=== PATIENT | male | born 1930 | race Asian ===

== ENCOUNTER 2017-08-13 11:31 | Emergency (ER) | payer OTHER ==
[2017-08-13 11:42] VITALS: BP 130/69; PULSE 73; TEMP 97.7; BMI 20.5
--- NOTE | 2017-08-13 12:00 | PDOC ---
History of Present Illness - General Chief Complaint: Injury Stated Complaint: INJURY Time Seen by Provider: 08/13/17 11:51 History Source: Patient, Care Provider, Family Exam Limitations: No Limitations - History of Present Illness Initial Comments: 08/13/17 12:01 Patient was brought in by care provider for evaluation of right rib pain. States was standing on chair yesterday changing the battery in a smoke alarm, stumbled and fell and landed on edge of chair to the right rib. Complaints of pain and mild immobility secondary to this fall. Denies head injury, no shortness of breath, Occurred: reports: yesterday Severity: reports: mild, moderate Pain Location: reports: abdomen, chest Method of Injury: Yes: direct blow, fall Modifying Factors: improves with: cold therapy, pain medication Loss of Consciousness: no loss of consciousness Associated Symptoms (Fall): denies symptoms, chest pain Past History - Travel Traveled outside of the country in the last 30 days: No Close contact w/someone who was outside of country & ill: No - Past Medical History Allergies/Adverse Reactions: Allergies Allergy/AdvReac Type Severity Reaction Status Date / Time No Known Allergies Allergy Verified 08/13/17 11:42 Home Medications: Ambulatory Orders NK [No Known Home Medication] 08/13/17 COPD: No GI Disorders: Yes Other medical history: constipation - Surgical History 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 No: Malaise HEENTM: Yes: See HPI. No: Symptoms Reported Respiratory: Yes: See HPI, Other (pain with deep inspiration primarily right mid lower rib). No: Cough ABD/GI: Yes: Symptoms Reported, See HPI (mild tenderness to right lower rib border) : No: Symptoms Reported Integumentary: Yes: See HPI. No: Symptoms Reported, Bruising Neurological: Yes: See HPI. No: Symptoms reported All Other Systems: Reviewed and Negative *Physical Exam - Vital Signs Last Vital Signs Temp Pulse Resp BP Pulse Ox 97.7 F 73 18 130/69 99 08/13/17 11:37 08/13/17 11:37 08/13/17 11:37 08/13/17 11:37 08/13/17 11:37 - Physical Exam General Appearance: Yes: Nourished, Appropriately Dressed, Apparent Distress, Mild Distress HEENT: positive: JOSAFAT, Normal ENT Inspection, TMs Normal, Pharynx Normal Neck: positive: Supple. negative: Tender Respiratory/Chest: positive: Lungs Clear (the poor inspiratory effort secondary to right rib pain), Normal Breath Sounds. negative: Paradoxal Breathing Cardiovascular: positive: Regular Rhythm Gastrointestinal/Abdominal: positive: Tender (upper right quad/ prim inferior rib border ), Soft Musculoskeletal: positive: Normal Inspection Extremity: positive: Normal Capillary Refill, Normal Inspection Integumentary: positive: Normal Color, Dry, Warm. negative: Swelling, Ecchymosis, Bruising Neurologic: positive: crayon sorting machine feeder II-XII NML intact, Fully Oriented, Alert, Normal Mood/ Affect, Normal Response, Motor Strength 5/5 Progress Note - Progress Note Progress Note: Probable fracture although x-rays on conclusive. Discussed with patient and care provider treatment is supportive care. Also encouraged to return to emergency department for worsened pain, abdominal pain, fevers or other problems otherwise we'll treat with naproxen which patient already has at home. Opted out of any heavy narcotic medications as patient lives alone and elderly , is also reluctant to take medications. *DC/Admit/Observation/Transfer Diagnosis at time of Disposition: Contusion of rib on right side Qualifiers: Encounter type: initial encounter Qualified Code(s): S20.211A - Contusion of right front wall of thorax, initial encounter - Discharge Dispostion Disposition: HOME Condition at time of disposition: Stable Admit: No - Referrals Referrals: STAFF,NOT ON [Primary Care Provider] - - Patient Instructions Printed Discharge Instructions: DI for Rib Contusion Additional Instructions: Rest, drink lots of fluids: Teas, water, soups, Steamy showers/seem to face break up mucus Continue [id number] medications for symptomatic relief Tylenol or Motrin for fever and pain Followup with private physician in one to 2 days as needed Return to emergency department for worsened symptoms, fevers, dehydration - Post Discharge Activity
[2017-08-13] MEDS ORDERED: ACETAMINOPHEN 500 MG TABLET (FP) PO ONE (12:20)
[2017-08-13] MEDS ORDERED: ACETAMINOPHEN 500 MG TABLET (FP) ONE (12:22)
== END 2017-08-13 12:55 | disposition home or self-care (01) ==
LOC: JERFT 11:31
DX: S20.211A Contusion of right front wall of thorax, initial encounter (principal); W07.XXXA Fall from chair, initial encounter; Y93.E9 Activity, other interior property and clothing maintenance; Y92.038 Other place in apartment as the place of occurrence of the external cause; Y99.8 Other external cause status; Z85.038 Personal history of other malignant neoplasm of large intestine
CPT/HCPCS: 71101-TC-RT; 99281-25

== ENCOUNTER 2018-06-27 15:46 | Inpatient (IN) | payer OTHER ==
[2018-06-27 16:07] VITALS: BMI 19.0
--- NOTE | 2018-06-27 16:07 | PDOC ---
Rapid Medical Evaluation Chief Complaint: Pain Time Seen by Provider: 06/27/18 16:04 Medical Evaluation: Allergies Allergy/AdvReac Type Severity Reaction Status Date / Time No Known Allergies Allergy Verified 08/13/17 11:42 06/27/18 16:05 I have performed a brief in person evaluation. The patient presents with a CC of : Fall and right hand edema and erythema HPI: Pt is a 88 Yo male who is accompanied by his aide who states that he fell in his bedroom on Tuesday and fell onto his face. Denies LOC. Denies being on anticoagulants with the exception of ASA. Pt also had hand pain and erythema x 4 days. PE: Skin: Erythema to right hand. Lungs: Clear Heart: RRR Abd: no pain upon palpation MS: Moves all extremities without difficulty Neuro: Alert Psych: Appropriate affect I have ordered the following: basic labs and right hand xray and CT of face and head. The patient will proceed to the ED for further evaluation. Discharge Disposition - Diagnosis Facial pain - Referrals Referrals: Vince Kevin MD [Primary Care Provider] - - Patient Instructions - Post Discharge Activity
[2018-06-27 16:49] LABS: BASO % 0.3 % (0-2.0); HEMATOCRIT 33.4 % (35.4-49); HEMOGLOBIN 11.7 GM/dL (11.7-16.9); LYMPH % 4.3 % (8-40); MCH 33.7 pg (25.7-33.7); MEAN CELL VOLUME 96.4 fl (80-96); MEAN PLT VOLUME 7.7 fl (7.5-11.1); MONO % 4.5 % (3.8-10.2); NEUT % 90.9 % (42.8-82.8); PLATELET COUNT 182 K/MM3 (134-434); RBC 3.47 M/mm3 (4.00-5.60); RDW 14.1 % (11.9-15.9); WHITE BLOOD COUNT 8.1 K/mm3 (4.0-10.0)
--- NOTE | 2018-06-27 18:40 | PDOC ---
History of Present Illness - General Chief Complaint: Edema Stated Complaint: INJURY LT EYE/RT HAND Time Seen by Provider: 06/27/18 16:04 - History of Present Illness Initial Comments: 06/27/18 20:20 The patient is an 88 year old male with a history of colon CA who presents for evaluation of right hand pain. The patient reports that he fell 2 days ago and landed on his right hand. He has since been developing more pain, swelling, and redness to the hand prompting his presentation to the ED for further evaluation. He notes that he did hit his head, but denies LOC and is on asa. He otherwise denies fevers, chills, SOB, chest pain, nausea, vomiting, abdominal pain, numbness, tingling, weakness, or changes with urination or bowel movements. 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 No rashes, itching, bruising, pallor Neurologic: No Headache, Dizziness, Numbness, Weakness, or Tingling Psychiatric: No Hallucinations. No SI or HI *Physical Exam - Vital Signs Last Vital Signs Temp Pulse Resp BP Pulse Ox 97.8 F 76 18 128/64 100 06/27/18 16:03 06/27/18 16:03 06/27/18 16:03 06/27/18 16:03 06/27/18 16:03 - Physical Exam Comments: 06/27/18 20:22 General Appearance: Nourished. No Apparent Distress HEENT: EOMI, JOSAFAT. No Pharyngeal Erythema, Tonsillar Exudate, Tonsillar Erythema Neck: No Cervical Lymphadenopathy Respiratory/Chest: Lungs Clear, Normal Breath Sounds. No Crackles, Rales, Rhonchi, Wheezing Cardiovascular: Regular Rhythm, Regular Rate. No Murmur, Gallops, Rubs Gastrointestinal/Abdominal: Normal Bowel Sounds, Soft. No Guarding, Rebound, Tenderness Musculoskeletal: No CVA Tenderness Extremity: Edema, warmth, erythema, and tenderness to palpation to the right hand extending to the wrist. Normal Capillary Refill Integumentary: Normal Color, Dry, Warm Neurologic: dredgemaster II-XII NML intact, Fully Oriented, Alert, Normal Mood/Affect, Normal Response, Motor Strength 5/5. ED Treatment Course - LABORATORY CBC & Chemistry Diagram: 06/27/18 16:37 06/27/18 20:30 - ADDITIONAL ORDERS Additional order review: Laboratory Results 06/27/18 16:37 Sodium Cancelled Potassium Cancelled Chloride Cancelled Carbon Dioxide Cancelled Anion Gap Cancelled BUN Cancelled Creatinine Cancelled Creat Clearance w eGFR Cancelled Random Glucose Cancelled Calcium Cancelled Total Bilirubin Cancelled AST Cancelled ALT Cancelled Alkaline Phosphatase Cancelled Total Protein Cancelled Albumin Cancelled 06/27/18 16:37 RBC 3.47 L MCV 96.4 H MCHC 35.0 RDW 14.1 MPV 7.7 Neutrophils % 90.9 H Lymphocytes % 4.3 L Monocytes % 4.5 Eosinophils % 0.0 Basophils % 0.3 Medical Decision Making - Medical Decision Making 06/27/18 20:23 The patient is an 88 year old male with a history of colon CA who presents for evaluation of right hand pain. Differential includes but is not limited to: Cellulitis, abscess, Fracture, Infectious, Metabolic Derangement. Given the patient's history and physical exam, it is likely his symptoms are due to a cellulitis. However, we will obtain a cbc, cmp, blood cultures, plain films, ekg to evaluate further. The patient refused head ct imaging at this time. He his fall was 48 hours ago and he has no focal neurological deficits on exam make intracranial process less likely. We will treat with clindamycin and continue to monitor and reassess while here in the ED. 06/27/18 23:32 CBC, cmp are unremarkable. Plain films demonstrate no fractures as read by our radiologist. We discussed the case with the admitting team who accepted the patient for admission. *DC/Admit/Observation/Transfer Diagnosis at time of Disposition: Cellulitis of hand - Discharge Dispostion Condition at time of disposition: Stable Decision to Admit order: Yes - Referrals Referrals: Vince Kevin MD [Primary Care Provider] - - Patient Instructions - Post Discharge Activity
--- NOTE | 2018-06-27 19:32 | PDOC ---
Attending Attestation - Resident Resident Name: MaryFrankBrent - ED Attending Attestation I have performed the following: I have examined & evaluated the patient, The case was reviewed & discussed with the resident, I agree w/resident's findings & plan, Exceptions are as noted - HPI HPI: 06/27/18 19:31 88-year-old male fell yesterday and presents with complaint of wrist pain - Physicial Exam PE: 06/27/18 19:42 [id number] 88 male has c/o wrist pain head ncat c spine no midline tenderness lungs cta b/l cvs [id number] abd nontender ext left land is swollen,erythematous and tender, good ulnar and radial pulses neuro alert,conversant, no facial droop,moving arms and legs skin warm and dry 06/27/18 20:20 06/27/18 21:24 - Medical Decision Making 06/27/18 21:25 This 88-year-old male was brought in by ambulance from home for evaluation of right hand and wrist pain following a fall on Tuesday Patient lives alone at home and has a home health aide. The patient fell yesterday and comes in because of persistent right wrist pain . He is not any anticoagulation. Radiograph of the right wrist was negative for any fracture. Impression cellulitis, right hand and wrist/admission for antibiotics
[2018-06-27] MEDS ORDERED: CLINDAMYCIN 600MG PREMIX IVPB 600 MG/50 ML BAG IVPB ONE ×2 (20:18→21:46)
[2018-06-27 21:11] LABS: ALBUMIN 2.2 g/dl (3.4-5.0); ALK PHOS 71 U/L (45-117); ANION GAP 10 MMOL/L (8-16); BILIRUBIN,TOTAL 0.6 mg/dL (0.2-1); BLOOD UREA NITROGEN 17 mg/dL (7-18); CALCIUM 7.5 mg/dL (8.5-10.1); CHLORIDE 107 mmol/L (98-107); CO2 25 mmol/L (21-32); CREATININE 0.7 mg/dL (0.55-1.3); GLUCOSE,RANDOM 79 mg/dL (74-106); SGOT/AST 26 U/L (15-37); SGPT/ALT 26 U/L (13-61); SODIUM 142 mmol/L (136-145); TOT PROT 5.2 g/dl (6.4-8.2)
--- NOTE | 2018-06-28 00:09 | HP ---
Admitting History and Physical - Primary Care Physician PCP: Vince Kevin - Admission Chief Complaint: right hand swelling and redness History of Present Illness: 88 year old M with h/o BPH, colon cancer s/p resection now with chronic diarrhea , Aortic aneursym s/p endovascular repair 03/2018, anemia (on iron PO) and hearing loss (uses hearing aides) presented to ED via EMS for evaluation of right hand/wrist swelling, pain and redness since the morning of 06/27. Pt reports falling out of bed overnight, he did not sustain any serious injuries and noticed his hand was swollen upon awakening in the morning. Due to concern for fracture, he decided to present for urgent evaluation. He denies fever/ chills/N/V/GALLEGOS. In ED vitals were stable: BP 128/64, HR 76, temp 97.8, RR 18 and O2 sat 100%. X- ray of right wrist and hand did not demonstrate any fractures. However, due to significant cellulitis and elevated neutrophils (90%); pt was admitted for continued management. He was given one dose of clindamycin 600mg IVSS in ED. History Source: Patient Limitations to Obtaining History: Language Barrier, Poor Historian - Past Medical History [employer]: No: Alzheimer's, CVA, Dementia, Migraine, Multiple Sclerosis, Peripheral Neuropathy, Parkinson's, Seizure, Syncope, TIA, Vertigo, Other Cardiovascular: Yes: Aneurysm, Murmur Gastrointestinal: Yes: Cancer, Other (diarrhea) Renal/: No: Renal Failure, Renal Inusuff, BPH, Cancer, Hematuria, Hemodialysis , Neurogenic Bladder, Renal Calculi, UTI, Other Heme/Onc: Yes: Anemia. No: B12 Deficiency, Bleeding Disorder, Cancer, Current Chemotherapy, Current Radiation Therapy, Hemochromatosis, Hypercoaguable State, Myeloproliferative Synd, Sickle Cell Disease, Sickle Cell Trait, Thrombocytopenia, Other Psych: No: Addictions, Anxiety, Bipolar, Depression, Panic, Psychosis, Schizophrenia, Other Musculoskeletal: No: Bursitis, Chronic low back pain, Hemiparesis, Hemiplegia, Osteoarthritis, Paraplegia, Other Rheumatology: No: Fibromyalgia, Gout, Lupus, Rheumatoid Arthritis, Sarcoidosis, Vasculitis, Other ENT: Yes: Allergic Rhinitis Endocrine: Yes: Diabetes Mellitus Dermatology: Yes: Cellulitis - Past Surgical History Past Surgical History: Yes: AAA Repair, Colonoscopy (colon cancer resection) - Smoking History Smoking history: Never smoked Have you smoked in the past 12 months: No - Alcohol/Substance Use Hx Alcohol Use: No History of Substance Use: reports: None - Social History Usual Living Arrangement: Yes: Alone 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 History of Recent Travel: No Home Medications - Allergies Allergies/Adverse Reactions: Allergies Allergy/AdvReac Type Severity Reaction Status Date / Time No Known Allergies Allergy Verified 06/27/18 16:07 - Home Medications Home Medications: Ambulatory Orders Aspirin [ASA -] 81 mg PO DAILY 06/27/18 Iron 0 mg PO 06/27/18 Loperamide HCl [Imodium -] 2 mg PO DAILY 06/27/18 Tamsulosin HCl 0.4 mg PO DAILY 06/27/18 Zolpidem Tartrate [Ambien] 5 mg PO 06/27/18 Family Disease History - Family Disease History Family History: Unable to Obtain ([place] to current admission) Review of Systems - Review of Systems Constitutional: reports: No Symptoms Eyes: reports: No Symptoms (wears prescription lens) HENT: reports: Hearing Loss Neck: reports: No Symptoms Cardiovascular: reports: Edema Respiratory: reports: No Symptoms Gastrointestinal: reports: Diarrhea Genitourinary: reports: Incontinence Musculoskeletal: reports: Decreased ROM (right hand and wrist swelling and redness) Integumentary: reports: Erythema (left dowd blister from edema Right hand redness and swelling) Neurological: reports: Unsteady Gait (ambulates with rollator) Endocrine: reports: No Symptoms Hematology/Lymphatic: reports: No Symptoms Psychiatric: reports: Altered Sleep Pattern (reports two weeks of insomnia) Physical Examination Vital Signs: Vital Signs Temperature 97.8 F 06/27/18 16:03 Pulse Rate 76 06/27/18 16:03 Respiratory Rate 18 06/27/18 16:03 Blood Pressure 128/64 06/27/18 16:03 O2 Sat by Pulse Oximetry (%) 100 06/27/18 16:03 Constitutional: Yes: No Distress, Calm Eyes: Yes: Conjunctiva Clear, PERRL (left lower lid orbital ecchymosis) HENT: Yes: Atraumatic, Normocephalic Neck: Yes: Supple, Trachea Midline (+JVD) Cardiovascular: Yes: Regular Rate and Rhythm, Murmur (harsh SM across precordium ) Respiratory: Yes: Regular, CTA Bilaterally Gastrointestinal: Yes: Normal Bowel Sounds, Soft ...Rectal Exam: Yes: Deferred Renal/: Yes: Incontinence Musculoskeletal: Yes: Other (decreased muscle strength and ROM) Extremities: Yes: Cool Edema: LLE: 3+ (pitting edema), RLE: 3+ (pitting edema) Peripheral Pulses: Left Radial: 1+, Right Radial: 1+, Left Doralis Pedis: 1+, Right Dorsalis Pedis: 1+ Integumentary: Yes: Erythema (right wrist and hand), Skin Tear (Left dowd) Neurological: Yes: Alert, Oriented, Unsteady Gait Psychiatric: Yes: Alert, Oriented Labs: CBC, BMP 06/27/18 16:37 06/27/18 20:30 Imaging - Results X-ray: Report Reviewed (right hand x-ray: Loss of bone density. Degenerative changes. Swelling, no acute fracture appreciated. Reported by Dr. Paul Cervantes) Problem List - Problems (1) Edema extremities Assessment/Plan: lasix 20mg daily elevate Lower extremities strict intake and output replete electrolytes as needed cardiac diet Code(s): R60.0 - LOCALIZED EDEMA (2) Insomnia Assessment/Plan: hold ambien start melatonin 5mg qhs PRN Code(s): G47.00 - INSOMNIA, UNSPECIFIED (3) Chronic diarrhea of unknown origin Assessment/Plan: imodium 2mg once daily monitor electrolytes Code(s): K52.9 - NONINFECTIVE GASTROENTERITIS AND COLITIS, UNSPECIFIED (4) BPH (benign prostatic hyperplasia) Assessment/Plan: flomax 0.4mg once daily Code(s): N40.0 - BENIGN PROSTATIC HYPERPLASIA WITHOUT LOWER URINRY TRACT SYMP (5) Cellulitis of hand Assessment/Plan: continue with clindamycin 600mg three times daily f/u blood cultures trend temp curve trend WBCs, ANC Code(s): L03.119 - CELLULITIS OF UNSPECIFIED PART OF LIMB Assessment/Plan PPX Heparin SC BID fall precautions due to unsteady gait DISPO: Full code Visit type - Emergency Visit Emergency Visit: Yes ED Registration Date: 06/27/18 Care time: The patient presented to the Emergency Department on the above date and was hospitalized for further evaluation of their emergent condition. - New Patient This patient is new to me today: Yes Date on this admission: 06/28/18 - Critical Care Critical Care patient: No
[2018-06-28] MEDS ORDERED: LOPERAMIDE HCL 2 MG CAPSULE PO PRN (00:36)
[2018-06-28] MEDS ORDERED: ACETAMINOPHEN 325 MG TABLET (FP) PO PRN (00:41)
[2018-06-28] MEDS ORDERED: FUROSEMIDE 40 MG/4 ML INJECTABLE VIAL IVPUSH STA (00:58)
[2018-06-28] MEDS ORDERED: FUROSEMIDE 40 MG/4 ML INJECTABLE VIAL ONE (01:10)
[2018-06-28] MEDS: CLINDAMYCIN 300 MG PREMIX IVPB 300 MG/50 ML BAG IVPB SCH ×2 (05:09→14:35)
[2018-06-28] MEDS: INSULIN SLIDING SCALE (NOVOLOG) 1 VIAL SQ SCH ×4 (07:00→21:47)
[2018-06-28] MEDS: TAMSULOSIN HCL 0.4 MG CAP PO SCH (08:48)
[2018-06-28] MEDS: FUROSEMIDE 40 MG/4 ML INJECTABLE VIAL IVPUSH SCH (10:51)
[2018-06-28] MEDS: ASPIRIN 81 MG CHEWABLE TABLETS PO SCH (10:51)
[2018-06-28] MEDS: HEPARIN NA (PORCINE) 5,000 UNITS/ML 1ML VIAL SQ SCH ×2 (10:51→21:47)
--- NOTE | 2018-06-28 13:37 | ECHO ---
Name: LANNY WASHINGTON Exam:Adult Echocardiogram Study Date: 06/28/2018 09:15 AM Age: 88 yrs Reason For Study: SYSTOLIC MURMUR Height: 64 in Weight: 111 lb BSA: 1.5 m2 MMode/2D Measurements & Calculations IVSd: 0.75 cm Ao root diam: 3.2 cm LVIDd: 4.2 cm LA dimension: 3.1 cm LVIDs: 2.5 cm LVPWd: 0.73 cm EDV(Teich): 77.2 ml LVOT diam: 2.0 cm ESV(Teich): 22.5 ml TAPSE: 2.0 cm RV S Ramana: 16.2 cm/sec Doppler Measurements & Calculations MV E max ramana: 70.6 cm/sec Ao V2 max: 149.7 cm/sec MV A max ramana: 92.9 cm/sec Ao max P.0 mmHg MV E/A: 0.76 AI P1/2t: 835.3 msec MV dec time: 0.18 sec SUSAN(V,D): 1.7 cm2 AI max ramana: 293.4 cm/sec LV V1 max P.4 mmHg AI max P.4 mmHg LV V1 max: 77.5 cm/sec AI dec slope: 102.9 cm/sec2 MR max ramana: 622.7 cm/sec TR max ramana: 293.7 cm/sec MR max P.6 mmHg TR max P.5 mmHg Med Peak E' Ramana: 7.5 cm/sec Med E/e': 9.4 Lat Peak E' Ramana: 6.3 cm/sec Lat E/e': 11.2 Procedure A two-dimensional transthoracic echocardiogram with color flow and Doppler was performed. Left Ventricle The left ventricular size, thickness and function are normal. The left ventricular ejection fraction is normal. E/A reversal consistent with but not diagnostic of poor LV compliance. The left ventricular w all motion is normal. Right Ventricle The right ventricle is normal in size and function. A moderator band is seen in the right ventricle. Atria Normal left and right atrial size and function. Mitral Valve There is mild mitral valve thickening. There is no mitral valve stenosis. There is severe mitral regurgitation. The mitral regurgitant jet is posteriorly directed, which is consistent with anterior leaflet pathology. Tricuspid Valve There is mild tricuspid valve thickening. There is no tricuspid stenosis. There is severe tricuspid regurgitation. Right ventricular systolic pressure is elevated at 40-50mmHg. Aortic Valve The aortic valve is normal in structure and function. No hemodynamically significant valvular aortic stenosis. Mild aortic regurgitation. Great Vessels The aortic root is normal size. Pericardium/Pleura There is no pericardial effusion. Interpretation Summary The left ventricular size, thickness and function are normal The left ventricular ejection fraction is normal. There is severe mitral regurgitation. The mitral regurgitant jet is posteriorly directed, which is consistent with anterior leaflet patholo gy. There is severe tricuspid regurgitation. Right ventricular systolic pressure is elevated at 40-50mmHg. A moderator band is seen in the right ventricle. E/A reversal consistent with but not diagnostic of poor LV compliance The left ventricular wall motion is normal. Mild aortic regurgitation. MD Ishaan Landin 06/28/2018 01:36 PM
--- NOTE | 2018-06-28 15:35 | EKG ---
Test Reason : Blood Pressure : / mmHG Vent. Rate : 068 BPM Atrial Rate : 068 BPM P-R Int : 158 ms QRS Dur : 092 ms QT Int : 428 ms P-R-T Axes : 067 037 021 degrees QTc Int : 455 ms POOR DATA QUALITY, INTERPRETATION MAY BE ADVERSELY AFFECTED NORMAL SINUS RHYTHM NORMAL ECG WHEN COMPARED WITH ECG OF 21-MAR-2007 13:10, PREMATURE ATRIAL COMPLEXES ARE NO LONGER PRESENT T WAVE AMPLITUDE HAS DECREASED IN ANTERIOR LEADS Confirmed by ELICIA RUSHING, ELIZABETH ([id number]) on 06/28/2018 3:35:16 PM Referred By: Confirmed By:ELIZABETH RUBI MD
--- NOTE | 2018-06-28 15:36 | CON.ID ---
Consult Consult Specialty:: infectious disease Referred by:: hospitalist Reason for Consultation:: erythema of the right hand - History of Present Illness Chief Complaint: right hand erythema History of Present Illness: 88 yo man admitted from home (senior apt) s/p fall- he injured his right hand wi =hich subseuqently became swollen and red no fevers, no chill now twith 3 month history of LE edema also had endovasclar stent for aneurysm 3 months ago at [facility] no history of MRSA no antibiotics daughter at bedside hand is less swollen and improved today - History Source History Provided By: Family Member Limitations to Obtaining History: Language Barrier - Past Medical History 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: No: Alzheimer's, CVA, Dementia, Migraine, Multiple Sclerosis, Peripheral Neuropathy, Parkinson's, Seizure, Syncope, TIA, Vertigo, Other Cardio/Vascular: Yes: Aneurysm, Murmur Gastrointestinal: Yes: Cancer, Other (diarrhea) Renal/: No: Renal Failure, Renal Inusuff, BPH, Cancer, Hematuria, Hemodialysis , Neurogenic Bladder, Renal Calculi, UTI, Other Psych: No: Addictions, Anxiety, Bipolar, Depression, Panic, Psychosis, Schizophrenia, Other Musculoskeletal: No: Bursitis, Chronic low back pain, Hemiparesis, Hemiplegia, Osteoarthritis, Paraplegia, Other Rheumatology: No: Fibromyalgia, Gout, Lupus, Rheumatoid Arthritis, Sarcoidosis, Vasculitis, Other ENT: Yes: Allergic Rhinitis Endocrine: Yes: Diabetes Mellitus Dermatology: Yes: Cellulitis - Past Surgical History Past Surgical History: Yes: AAA Repair, Colectomy (has chronic diarrhea), Colonoscopy (colon cancer resection) - Alcohol/Substance Use Hx Alcohol Use: No History of Substance Use: reports: None - Smoking History Smoking history: Never smoked Have you smoked in the past 12 months: No - Social History Usual Living Arrangement: Alone (senior apt) 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 History of Recent Travel: No Home Medications - Allergies Allergies/Adverse Reactions: Allergies Allergy/AdvReac Type Severity Reaction Status Date / Time No Known Allergies Allergy Verified 06/27/18 16:07 - Home Medications Home Medications: Ambulatory Orders Aspirin [ASA -] 81 mg PO DAILY 06/27/18 Iron 0 mg PO 06/27/18 Loperamide HCl [Imodium -] 2 mg PO DAILY 06/27/18 Tamsulosin HCl 0.4 mg PO DAILY 06/27/18 Zolpidem Tartrate [Ambien] 5 mg PO 06/27/18 Family Disease History - Family Disease History Family History: Unable to Obtain Review of Systems - Review of Systems Constitutional: reports: No Symptoms. denies: Chills, Diaphoresis, Fever Eyes: reports: No Symptoms HENT: reports: No Symptoms Neck: reports: No Symptoms Cardiovascular: reports: No Symptoms. denies: Chest Pain Respiratory: denies: Cough Gastrointestinal: reports: No Symptoms. denies: Abdominal Pain Genitourinary: reports: No Symptoms Physical Exam Vital Signs: Vital Signs Temperature 97.7 F 06/28/18 14:00 Pulse Rate 78 06/28/18 08:30 Respiratory Rate 18 06/28/18 08:30 Blood Pressure 129/67 06/28/18 08:30 O2 Sat by Pulse Oximetry (%) 96 06/28/18 08:30 Constitutional: Yes: Well Nourished, No Distress, Calm Eyes: Yes: Conjunctiva Clear HENT: Yes: Atraumatic, Normocephalic. No: Thrush Neck: Yes: Supple, Trachea Midline Cardiovascular: Yes: Regular Rate and Rhythm Respiratory: Yes: Regular, CTA Bilaterally Gastrointestinal: Yes: Normal Bowel Sounds, Soft ...Rectal Exam: Yes: Deferred Renal/: No: CVA Tenderness - Left, CVA Tenderness - Right Musculoskeletal: Yes: WNL Extremities: Yes: Erythema (of the right hand, no edema- +erythema, FROM of the hand), Other Edema: No Neurological: Yes: Alert, Oriented Psychiatric: Yes: Alert, Oriented Labs: CBC, BMP 06/27/18 16:37 06/27/18 20:30 blood cultures pending Imaging - Results X-ray: Report Reviewed, Image Reviewed Problem List - Problems (1) Cellulitis of hand Code(s): L03.119 - CELLULITIS OF UNSPECIFIED PART OF LIMB Assessment/Plan cellulitis of the hand secondary to fall last hospitalized 3 months ago for endovascular stent placement for AAA after that overnight for leg swelling no history of MRSA no evidence fever or abscess reports improvement will start cefazolin f/u cultures
--- NOTE | 2018-06-28 16:05 | PN ---
Progress Note, Physician Chief Complaint: EVENTS AND NOTES REVIEWED C/O ERYTHEMA TO UPPER EXTREMITIES NO FEVERS - Current Medication List Current Medications: Active Medications Acetaminophen (Tylenol -) 650 mg PO Q6H PRN PRN Reason: FEVER Aspirin (Asa -) 81 mg PO DAILY [facility] Last Admin: 06/28/18 10:51 Dose: 81 mg Furosemide (Lasix Injection -) 20 mg IVPUSH DAILY [facility] Last Admin: 06/28/18 10:51 Dose: 20 mg Heparin Sodium (Porcine) (Heparin -) 5,000 unit SQ BID [facility] Last Admin: 06/28/18 10:51 Dose: 5,000 unit Cefazolin Sodium 1 gm/ (Dextrose) 50 mls @ 100 mls/hr IVPB Q8H-IV AVERY Insulin Aspart (Novolog Vial Sliding Scale -) 1 vial SQ ACHS [facility]; Protocol Last Admin: 06/28/18 11:08 Dose: Not Given Loperamide HCl (Imodium -) 2 mg PO Q6H PRN PRN Reason: DIARRHEA Melatonin (Melatonin) 3 mg PO [facility] Tamsulosin HCl (Flomax -) 0.4 mg PO DAILY@0830 [facility] Last Admin: 06/28/18 08:48 Dose: 0.4 mg - Objective Vital Signs: Vital Signs Temperature 97.7 F 06/28/18 14:00 Pulse Rate 78 06/28/18 08:30 Respiratory Rate 18 06/28/18 08:30 Blood Pressure 129/67 06/28/18 08:30 O2 Sat by Pulse Oximetry (%) 96 06/28/18 08:30 Constitutional: Yes: Mild Distress Eyes: Yes: WNL HENT: Yes: WNL Neck: Yes: WNL Cardiovascular: Yes: WNL Respiratory: Yes: WNL Gastrointestinal: Yes: WNL Genitourinary: Yes: WNL Musculoskeletal: Yes: Other Extremities: Yes: Erythema Edema: Yes Edema: LUE: 1+, RUE: 1+ Peripheral Pulses WNL: Yes Integumentary: Yes: Erythema, Rash Wound/Incision: Yes: Open to air Neurological: Yes: WNL ...Motor Strength: WNL Psychiatric: Yes: WNL Labs: CBC, BMP 06/27/18 16:37 06/27/18 20:30 Problem List - Problems (1) BPH (benign prostatic hyperplasia) Code(s): N40.0 - BENIGN PROSTATIC HYPERPLASIA WITHOUT LOWER URINRY TRACT SYMP (2) Cellulitis of hand Code(s): L03.119 - CELLULITIS OF UNSPECIFIED PART OF LIMB (3) Edema extremities Code(s): R60.0 - LOCALIZED EDEMA Assessment/Plan IV ABX ID CONSULT VASC SX EVAL PAIN CONTROL DVT PROPHYLAXIS OOB TO CHAIR
[2018-06-28] MEDS ORDERED: DEXTROSE 5%-WATER - 50 ML IVPB ONE (17:52)
[2018-06-28] MEDS ORDERED: ceFAZolin SODIUM 1 GM VIAL ONE (17:52)
[2018-06-28] MEDS ORDERED: CEFAZOLIN 1 GM/D5W 1 GM/50 ML BAG IVPB SCH (18:00)
[2018-06-28] MEDS: CEFAZOLIN 1 GM in DEXTROSE 5%-WATER - 50 ML IVPB SCH (18:08)
[2018-06-28] MEDS ORDERED: INSULIN (NOVOLOG) ASPART 100 UNITS/ML 10ML VIAL ONE (20:32)
[2018-06-28] MEDS ORDERED: MELATONIN 1 MG TABLET PO SCH (22:00)
[2018-06-29] MEDS ORDERED: ceFAZolin SODIUM 1 GM VIAL ONE ×2 (03:01→09:20)
[2018-06-29] MEDS ORDERED: DEXTROSE 5%-WATER - 50 ML IVPB ONE ×2 (03:01→09:20)
--- NOTE | 2018-06-29 03:03 | PN ---
Progress Note (short form) - Note Progress Note: Vascular Surgery Pt seen and examined. Right hand cellulitis . Palpable brachial , radial pulses . IV antiobiotics Getting better Jonathan Courtney DO
[2018-06-29] MEDS: CEFAZOLIN 1 GM in DEXTROSE 5%-WATER - 50 ML IVPB SCH ×2 (03:05→09:42)
[2018-06-29 06:02] VITALS: TEMP 97.3
[2018-06-29] MEDS: INSULIN SLIDING SCALE (NOVOLOG) 1 VIAL SQ SCH ×2 (06:09→13:40)
[2018-06-29 08:35] LABS: HEMOGLOBIN 9.7 GM/dL (11.7-16.9); MCH 32.4 pg (25.7-33.7); MCHC 33.5 g/dl (32.0-35.9); MEAN CELL VOLUME 96.8 fl (80-96); MEAN PLT VOLUME 7.8 fl (7.5-11.1); PLATELET COUNT 141 K/MM3 (134-434); RDW 13.8 % (11.9-15.9)
[2018-06-29 08:43] LABS: ANION GAP 4 MMOL/L (8-16); BLOOD UREA NITROGEN 22 mg/dL (7-18); CALCIUM 7.2 mg/dL (8.5-10.1); CHLORIDE 104 mmol/L (98-107); CO2 30 mmol/L (21-32); CREATININE 0.7 mg/dL (0.55-1.3); GLUCOSE,RANDOM 99 mg/dL (74-106); N-TERMINAL BNP 1977.8 pg/ml (5-450); PHOSPHOROUS 2.7 mg/dL (2.5-4.9); SODIUM 139 mmol/L (136-145)
[2018-06-29 09:03] LABS: INR 1.15 (0.83-1.09); PROTHROMBIN TIME (PATIENT) 13.6 SEC (9.7-13.0)
[2018-06-29] MEDS: FUROSEMIDE 40 MG/4 ML INJECTABLE VIAL IVPUSH SCH (09:41)
[2018-06-29] MEDS: ASPIRIN 81 MG CHEWABLE TABLETS PO SCH (09:42)
[2018-06-29] MEDS: TAMSULOSIN HCL 0.4 MG CAP PO SCH (09:42)
[2018-06-29] MEDS: HEPARIN NA (PORCINE) 5,000 UNITS/ML 1ML VIAL SQ SCH (09:42)
[2018-06-29 11:09] LABS: ERYTHROCYTE SEDIMENTATION RATE 10 mm/hr (0-20)
--- NOTE | 2018-06-29 11:22 | PN ---
Progress Note (short form) - Note Progress Note: no complaints Vital Signs Period Temp Pulse Resp BP Sys/Olguin Pulse Ox Last 24 Hr 97.3 F-97.9 F 60-70 18-68 103-122/60-68 96 cor-rrr lungs clear abd soft,nt ext +edema of the legs less erythema of the finger, still erythema of the dorsum of the hand CBC, BMP 06/29/18 06:00 06/29/18 06:00 Microbiology 06/27/18 20:30 Blood - Peripheral Venous Blood Culture - Preliminary NO GROWTH OBTAINED AFTER 24 HOURS, INCUBATION TO CONTINUE FOR 4 DAYS. 06/27/18 20:30 Blood - Peripheral Venous Blood Culture - Preliminary NO GROWTH OBTAINED AFTER 24 HOURS, INCUBATION TO CONTINUE FOR 4 DAYS. a/p hand/arm cellulitis improving on ancef would continue iv antibiotics will re-revaluate in am d/w daughter at bedside Problem List - Problems (1) Cellulitis of hand Code(s): L03.119 - CELLULITIS OF UNSPECIFIED PART OF LIMB
[2018-06-29 11:23] VITALS: BP 100/60; PULSE 78
[2018-06-29] MEDS ORDERED: ceFAZolin 2 GRAM PREMIX BAG IVPB SCH (11:30)
[2018-06-29] MEDS ORDERED: CEFAZOLIN 2 GM/D5W 2 GM/50 ML ML IVPB SCH (11:30)
[2018-06-29] MEDS ORDERED: POTASSIUM CHLORIDE TABS 10 MEQ TABLET.ER (FP) PO ONE (13:22)
--- NOTE | 2018-06-29 13:23 | PN ---
Progress Note, Physician - Current Medication List Current Medications: Active Medications Acetaminophen (Tylenol -) 650 mg PO Q6H PRN PRN Reason: FEVER Aspirin (Asa -) 81 mg PO DAILY [facility] Last Admin: 06/29/18 09:42 Dose: 81 mg Furosemide (Lasix Injection -) 20 mg IVPUSH DAILY [facility] Last Admin: 06/29/18 09:41 Dose: 20 mg Heparin Sodium (Porcine) (Heparin -) 5,000 unit SQ BID [facility] Last Admin: 06/29/18 09:42 Dose: 5,000 unit Cefazolin Sodium/Dextrose (Ancef 2 Gm Premixed Ivpb -) 2 gm in 50 mls @ 100 mls /hr IVPB Q8H-IV AVERY Insulin Aspart (Novolog Vial Sliding Scale -) 1 vial SQ ACHS [facility]; Protocol Last Admin: 06/29/18 06:09 Dose: Not Given Loperamide HCl (Imodium -) 2 mg PO Q6H PRN PRN Reason: DIARRHEA Melatonin (Melatonin) 3 mg PO HS [facility] Last Admin: 06/28/18 21:47 Dose: 3 mg Tamsulosin HCl (Flomax -) 0.4 mg PO DAILY@0830 [facility] Last Admin: 06/29/18 09:42 Dose: 0.4 mg - Objective Vital Signs: Vital Signs Temperature 97.3 F L 06/29/18 05:59 Pulse Rate 78 06/29/18 09:00 Respiratory Rate 18 06/29/18 09:00 Blood Pressure 100/60 06/29/18 09:00 O2 Sat by Pulse Oximetry (%) 96 06/28/18 22:00 Cardiovascular: Yes: S1, S2 Respiratory: Yes: Regular, CTA Bilaterally Gastrointestinal: Yes: Normal Bowel Sounds, Soft Extremities: Yes: Erythema Edema: Yes Edema: LUE: Trace, RUE: 1+, LLE: 1+, RLE: 1+ Labs: CBC, BMP 06/29/18 06:00 06/29/18 06:00 INR, PTT INR 1.15 (0.83-1.09) H 06/29/18 06:00 Assessment/Plan - Problems (1) Edema extremities Assessment/Plan: lasix 20mg daily elevate Lower extremities strict intake and output replete electrolytes as needed cardiac diet Code(s): R60.0 - LOCALIZED EDEMA (2) Insomnia Assessment/Plan: hold ambien start melatonin 5mg qhs PRN Code(s): G47.00 - INSOMNIA, UNSPECIFIED (3) Chronic diarrhea of unknown origin Assessment/Plan: imodium 2mg once daily monitor electrolytes Code(s): K52.9 - NONINFECTIVE GASTROENTERITIS AND COLITIS, UNSPECIFIED (4) BPH (benign prostatic hyperplasia) Assessment/Plan: flomax 0.4mg once daily Code(s): N40.0 - BENIGN PROSTATIC HYPERPLASIA WITHOUT LOWER URINRY TRACT SYMP (5) Cellulitis of hand Assessment/Plan: continue with clindamycin 600mg three times daily f/u blood cultures trend temp curve trend WBCs, ANC Code(s): L03.119 - CELLULITIS OF UNSPECIFIED PART OF LIMB Assessment/Plan PPX Heparin SC BID fall precautions due to unsteady gait
[2018-06-29] MEDS ORDERED: POTASSIUM CHLORIDE TABS 10 MEQ TABLET.ER (FP) PO SCH (13:30)
== END 2018-06-29 14:11 | disposition left against medical advice (07) | DRG 603 ==
LOC: JER 15:46 → JERBED 23:01 → J6S 06-28 07:46
PROVIDERS: ADMIT Internal Medicine; ATTEND Family Medicine
DX: L03.113 Cellulitis of right upper limb (principal); N40.0 Benign prostatic hyperplasia without lower urinary tract symptoms; R60.0 Localized edema; Z85.038 Personal history of other malignant neoplasm of large intestine; S00.12XA Contusion of left eyelid and periocular area, initial encounter; X58.XXXA Exposure to other specified factors, initial encounter; Y93.89 Activity, other specified; Y92.89 Other specified places as the place of occurrence of the external cause; Y99.8 Other external cause status; G47.00 Insomnia, unspecified; K52.9 Noninfective gastroenteritis and colitis, unspecified
CPT/HCPCS: 36415; 73130-TC-RT-FY; 80048; 80053; 82962; 83036; 83605; 83735; 83880; 84100; 85025; 85027; 85610; 85651; 86140; 86850; 86900; 86901; 87040; 93005; 93010; 93306-TC; 99285-25; J1644

== ENCOUNTER 2018-07-15 13:59 | Emergency (ER) | payer OTHER ==
[2018-07-15 14:13] VITALS: BMI 20.5
[2018-07-15] MEDS ORDERED: ACETAMINOPHEN 500 MG TABLET (FP) PO ONE (14:42)
--- NOTE | 2018-07-15 14:48 | PDOC ---
History of Present Illness - General Chief Complaint: Injury Stated Complaint: INJURY TO HEAD Time Seen by Provider: 07/15/18 14:07 History Source: Patient, Training Officer Used, Old Records Exam Limitations: Language Barrier - History of Present Illness Initial Comments: 07/15/18 14:44 Pt is an 88yo M with PMH of BPH Aortic aneurysm s/p repair, colon ca s/p resection, on ASA BIBA s/p fall. Pt said he was in his apartment but the elevator was not working. He usually uses his walker but he did not have it with him this time. He states that his legs are weak and he fell onto carpet. He states that there was a lot of blood and EMS came and picked him up. He denies losing consciousness, numbness/tingling, changes in vision, abdominal pain, chest pain, sob, n/v. Endorses R knee pain. PMD: PMH: see hpi PSH: aneurysm repair Meds: tamsulosin, asa, loperamide, Allergies: nkda Past History - Past Medical History Allergies/Adverse Reactions: Allergies Allergy/AdvReac Type Severity Reaction Status Date / Time No Known Allergies Allergy Verified 07/15/18 14:07 Home Medications: Ambulatory Orders Aspirin [ASA -] 81 mg PO DAILY 06/27/18 Loperamide HCl [Imodium -] 2 mg PO DAILY 06/27/18 Tamsulosin HCl 0.4 mg PO DAILY 06/27/18 Zolpidem Tartrate [Ambien] 5 mg PO HS 06/27/18 Cancer: Yes (COLORECTAL) Cardiac Disorders: Yes (AAA) COPD: No CHF: No GI Disorders: Yes - Surgical History GI Surgery: Yes (colorecral ca 10 years ago) - Suicide/Smoking/Psychosocial Hx Smoking History: Never smoked Have you smoked in the past 12 months: No Information on smoking cessation initiated: No Hx Alcohol Use: No Drug/Substance Use Hx: No Review of Systems - Review of Systems Constitutional: No: Chills, Fever, Weakness HEENTM: No: Symptoms Reported Respiratory: No: Orthopnea, Shortness of Breath Cardiac (ROS): No: Chest Pain, Lightheadedness, Palpitations, Syncope ABD/GI: Yes: Diarrhea. No: Constipated, Nausea, Rectal Bleeding, Vomiting, Tarry Stools : No: Symptoms Reported Musculoskeletal: Yes: See HPI, Joint Pain (R knee pain). No: Muscle Pain, Muscle Weakness, Neck Pain Integumentary: Yes: See HPI, Other (abrasion on head) Neurological: Yes: Headache. No: Numbness, Paresthesia, Tingling, Tremors, Weakness, Ataxia *Physical Exam - Vital Signs Last Vital Signs Temp Pulse Resp BP Pulse Ox 97.9 F 70 16 120/64 100 07/15/18 14:00 07/15/18 14:00 07/15/18 14:00 07/15/18 14:00 07/15/18 14:00 - Physical Exam General Appearance: Yes: Nourished, Appropriately Dressed. No: Apparent Distress HEENT: positive: EOMI, JOSAFAT, TMs Normal, Pharynx Normal, Other (3cm abrasion with skin flap over R forehead. does not penetrate deeper layers. ) Neck: positive: Trachea midline, Supple. negative: Lymphadenopathy (R), Lymphadenopathy (L) Respiratory/Chest: positive: Lungs Clear, Normal Breath Sounds. negative: Crackles, Rales, Rhonchi, Stridor, Wheezing Cardiovascular: positive: Regular Rhythm, Regular Rate, S1, S2. negative: Edema , JVD, Murmur Vascular Pulses: Carotid (R): 2+, Carotid (L): 2+, Dorsalis-Pedis (R): 2+, Doralis-Pedis (L): 2+ Gastrointestinal/Abdominal: positive: Normal Bowel Sounds, Soft. negative: Distended, Guarding, Rebound, Tenderness, Hernia Musculoskeletal: positive: Other (R knee tenderness. No L knee, hip, wrist, elbow or shoulder tenderness. ). negative: CVA Tenderness, Vertebral Tenderness Extremity: positive: Normal Capillary Refill, Pedal Edema (bilateral pitting edema to knees. ). negative: Calf Tenderness, Erythema Integumentary: positive: Normal Color, Dry, Warm Neurologic: positive: scalloper II-XII NML intact, Fully Oriented, Alert, Normal Mood/ Affect, Normal Response, Motor Strength 5/5 Moderate Sedation - Procedure Monitoring Vital Signs: Procedure Monitoring Vital Signs Temperature 97.9 F 07/15/18 14:00 Pulse Rate 70 07/15/18 14:00 Respiratory Rate 16 07/15/18 14:00 Blood Pressure 120/64 07/15/18 14:00 O2 Sat by Pulse Oximetry (%) 100 07/15/18 14:00 ED Treatment Course - RADIOLOGY Radiology Studies Ordered: Category Date Time Status HEAD CT WITHOUT CONTRAST [CT] Stat CT Scan 07/15/18 14:41 Ordered Medical Decision Making - Medical Decision Making 07/15/18 14:47 Pt is an 88yo M with PMH of BPH Aortic aneurysm s/p repair, colon ca s/p resection, on ASA BIBA s/p fall. Pt said he was in his apartment but the elevator was not working. He usually uses his walker but he did not have it with him this time. He states that his legs are weak and he fell. He states that there was a lot of blood and EMS came and picked him up. He denies losing consciousness, numbness/tingling, changes in vision, abdominal pain, chest pain , sob, n/v. Endorses R knee pain. Vitals: PE: abrasion with skin flap to R frontal aspect of forehead with bleeding. R knee tenderness. No other joint tenderness. Bilateral pitting edema to knees Ddx: fracture, intracranial bleed -pt is alert and oriented x3. Stated he fell on carpet. order CT head and R knee xray. Tylenol and Tetanus shot. 07/15/18 16:02 Refused Xray. Waiting for CT and will irrigate wound. -wound is superficial. I used scissors to debride loose skin. wound does not penetrate into deeper tissue layers. Applied bacitracin and gauze to cover wound. Pt given extra gauze. 07/15/18 18:40 CT head and spine do not show acute bleed or fracture. Pt ambulated with assistance. Is AOx3, has PMD follow up, no neurological deficits. Can be DC home. Given strict return precautions. *DC/Admit/Observation/Transfer Diagnosis at time of Disposition: Head injury Qualifiers: Encounter type: initial encounter Qualified Code(s): S09.90XA - Unspecified injury of head, initial encounter Abrasion head Qualifiers: Encounter type: initial encounter Qualified Code(s): S00.91XA - Abrasion of unspecified part of head, initial encounter Fall Qualifiers: Encounter type: initial encounter Qualified Code(s): W19.XXXA - Unspecified fall, initial encounter - Discharge Dispostion Disposition: HOME Condition at time of disposition: Good - Referrals Referrals: Vince Kevin MD [Primary Care Provider] - - Patient Instructions Printed Discharge Instructions: DI for Closed Head Injury, DI for Abrasion Additional Instructions: You were seen here today because you fell. You do not have a fracture. Please make sure you use your walker when you walk! Keep the wound clean and dry. You can change the bandage as needed. Please make an appointment with your primary care doctor in the next few days. You can take Tylenol for pain. Come back to the emergency room if you fall down again, you feel weak, you are unable to walk, you lose consciousness or if any new concerning symptom develops. Thank you - Post Discharge Activity
[2018-07-15] MEDS ORDERED: TETANUS AND DIPHTHERIA TOXOID 0.5 ML DISP.SYRIN IM ONE (15:35)
--- NOTE | 2018-07-15 15:46 | PDOC ---
Attending Attestation - Resident Resident Name: LatonyaEma - ED Attending Attestation I have performed the following: I have examined & evaluated the patient, The case was reviewed & discussed with the resident, I agree w/resident's findings & plan, Exceptions are as noted - HPI HPI: 07/15/18 15:43 88 M with h/o Aortic aneurysm s/p repair, colon ca s/p resection, on ASA, presenting to ED after falling. Pt states that he usually uses a walker to ambulate at [facility]. However, today he attempted to walk without one and fell at home, hitting his head on the carpeted floor. Denies LOC. Now has pain in his forehead where he hit the ground but denies pain anywhere else. Denies any dizziness/lightheadedness prior to falling. Denies CP/SOB/palpitations. Denies pain in any extremity. Was able to get up afterwards with the assistance of EMS. - Physicial Exam PE: 07/15/18 15:45 GENERAL: Awake, alert, and fully oriented, in no acute distress. HEAD: + abrasion and partial skin avulsion, no laceration EYES: PERRLA, EOMI, sclera anicteric, conjunctiva clear ENT: Auricles normal inspection, hearing grossly normal, nares patent, oropharynx clear without exudates. Moist mucosa NECK: Nontender, no stepoffs, Normal ROM, supple, no lymphadenopathy, JVD, or masses LUNGS: Breath sounds equal, clear to auscultation bilaterally. No wheezes, and no crackles HEART: Regular rate and rhythm, normal S1 and S2, no murmurs, rubs or gallops ABDOMEN: Soft, nontender, normoactive bowel sounds. No guarding, no rebound. No masses EXTREMITIES: Normal range of motion, no edema. No clubbing or cyanosis. No cords, erythema, or tenderness NEUROLOGICAL: Cranial nerves II through XII intact. 5/5 strength and sensation in all extremities, Normal speech, normal gait, normal cerebellar function SKIN: Warm, Dry, normal turgor, no rashes or lesions noted. - Medical Decision Making 07/15/18 15:46 88 M with abrasion to forehead after mechanical fall. No other external signs of trauma. MSK exam unremarkable. - CT head/c-spine - Tdap 07/15/18 17:15 Wound irrigated and dressed with bacitracin 07/15/18 18:48 CTs negative Attempted to call daughter, voicemail left Pt ambulatory with assistance - at baseline Pt is well appearing, HD stable. Clinically stable for DC.
[2018-07-15] MEDS ORDERED: ACETAMINOPHEN 325 MG TABLET (FP) ONE (15:49)
[2018-07-15] MEDS ORDERED: DIPHTH,PERTUSS(ACELL),TET 0.5 ML DISP.SYRIN IM ONE (16:45)
[2018-07-15 20:46] VITALS: BP 132/68; PULSE 81; TEMP 98
== END 2018-07-15 21:03 | disposition home or self-care (01) ==
LOC: JER 13:59
PROC: 3E0234Z Introduction of Serum, Toxoid and Vaccine into Muscle, Percutaneous Approach (ICD-10-PCS; principal; 2018-07-15)
DX: S00.01XA Abrasion of scalp, initial encounter (principal); W18.39XA Other fall on same level, initial encounter; Y93.89 Activity, other specified; Y92.038 Other place in apartment as the place of occurrence of the external cause; Y99.8 Other external cause status; R26.89 Other abnormalities of gait and mobility; Z99.89 Dependence on other enabling machines and devices; N40.0 Benign prostatic hyperplasia without lower urinary tract symptoms; Z85.038 Personal history of other malignant neoplasm of large intestine; Z86.79 Personal history of other diseases of the circulatory system; R60.0 Localized edema
CPT/HCPCS: 70450-TC; 72125-TC; 90471; 99283-25

== ENCOUNTER 2018-08-13 14:31 | Inpatient (IN) | payer OTHER ==
--- NOTE | 2018-08-13 15:44 | PDOC ---
History of Present Illness - General Chief Complaint: Injury Stated Complaint: FALL Time Seen by Provider: 08/13/18 15:12 History Source: Family (daughter ) Exam Limitations: Language Barrier - History of Present Illness Initial Comments: 08/13/18 15:45 Patient is an 88 year old male with a PMHx of Aortic Aneurysm s/p repair (2017), BPH, diastolic CHF, colon ca s/p resection who presents here s/p mechanical fall. According to patients daughter, he was in bed Tuesday (08/11/18) , heard the phone ring and got out of bed for the phone without using his walker. Patient's daughter went to his house that afternoon and found him on the floor flat. He reports he was unable to get up due to the pain so she called EMS. When EMS arrived, patient was feeling better and decided against hospital transfer. Patient the following day started experiencing difficulty ambulating and had near fall episodes. Then today patient continued to have gait abnormalities and started experiencing short of breath, which prompted this hospital visit. Patient reports right sided rib/back pain associated with right groin/scrotal pain and short of breath. Patient's daughter reports he's been experiencing frequent falls in the last couple of months. Patient otherwise denies any fever, chills, nausea, vomiting, dizziness, chest pain, palpitations, abdominal pain, loss of consciousness, hemoptysis, urinary or bowel incontinence, diarrhea, constipation. 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 with Home health care 3-4 times a week Allergies: NKDA Past History - Past Medical History Allergies/Adverse Reactions: Allergies Allergy/AdvReac Type Severity Reaction Status Date / Time No Known Allergies Allergy Verified 08/13/18 15:06 Home Medications: Ambulatory Orders Aspirin [ASA -] 81 mg PO DAILY 06/27/18 Loperamide HCl [Imodium -] 2 mg PO DAILY 06/27/18 Tamsulosin HCl 0.4 mg PO DAILY 06/27/18 Zolpidem Tartrate [Ambien] 5 mg PO HS 06/27/18 Furosemide [Lasix] 20 mg PO ASDIR 08/13/18 Ferrous Sulfate 325 mg PO QID 01/07/19 Cancer: Yes (COLORECTAL) Cardiac Disorders: Yes (AAA) COPD: No CHF: No GI Disorders: Yes - Surgical History GI Surgery: Yes (colorecral ca 10 years ago) - Immunization History Immunization Up to Date: Yes - Suicide/Smoking/Psychosocial Hx Smoking History: Never smoked Have you smoked in the past 12 months: No Information on smoking cessation initiated: No Hx Alcohol Use: No Drug/Substance Use Hx: No Trauma Specific PMHX - Complaint Specific PMHX Back Injury: No Neck Injury: No Review of Systems - Review of Systems Constitutional: No: Chills, Diaphoresis, Fever HEENTM: No: Blurred Vision, Nose Pain, Nose Congestion, Tinnitus, Throat Pain Respiratory: Yes: Shortness of Breath, SOB at Rest. No: Cough, Orthopnea, Wheezing, Productive cough, Hemoptysis Cardiac (ROS): No: Chest Pain, Edema, Irregular Heart Rate, Palpitations, Syncope, Chest Tightness ABD/GI: No: Abdominal Distended, Constipated, Diarrhea, Nausea, Rectal Bleeding , Vomiting, Indigestion, Abdominal cramping, Tarry Stools : Yes: Other (Left groin and scrotal pain ). No: Burning, Dysuria, Discharge , Frequency, Flank Pain, Hematuria Musculoskeletal: Yes: Back Pain Integumentary: Yes: Bruising (left bottom eye lid) Neurological: Yes: Weakness, Unsteady Gait. No: Headache, Numbness, Paresthesia , Seizure, Tingling, Tremors, Dizziness *Physical Exam - Vital Signs Last Vital Signs Temp Pulse Resp BP Pulse Ox 98.7 F 80 17 115/65 100 08/13/18 15:02 08/13/18 15:02 08/13/18 15:02 08/13/18 15:02 08/13/18 15:12 - Physical Exam General Appearance: Yes: Other (Awake, alert, oriented x3, in no acute distress ) HEENT: positive: EOMI, JOSAFAT, Normal ENT Inspection, Symmetrical. negative: Tonsillar Exudate, Tonsillar Erythema, Sinus Tenderness Neck: positive: Supple. negative: Decreased range of motion, Lymphadenopathy (R ), Lymphadenopathy (L) Respiratory/Chest: positive: Other (poor respiratory effort. unable to appreciate crackles anteriorally ). negative: Respiratory Distress, Accessory Muscle Use, Wheezing Cardiovascular: positive: Regular Rhythm, Regular Rate, S1, S2. negative: Edema , JVD Gastrointestinal/Abdominal: positive: Other (Soft, nontender, 2+ pitting edema throughout abdomen, normoactive bowel sounds, no organomegaly. ) Male Genitalia: positive: testicular tenderness (left sided with left groind pain ) Extremity: positive: Pedal Edema (2+ pitting bilaterally ) Integumentary: positive: Swelling, Ecchymosis (of bilateral arms and left eye ) Neurologic: positive: shellfish manager II-XII NML intact, Fully Oriented, Alert, Normal Mood/ Affect, Normal Response, Motor Strength 5/5 Moderate Sedation - Procedure Monitoring Vital Signs: Procedure Monitoring Vital Signs Temperature 98.7 F 08/13/18 15:02 Pulse Rate 80 08/13/18 15:02 Respiratory Rate 17 08/13/18 15:02 Blood Pressure 115/65 08/13/18 15:02 O2 Sat by Pulse Oximetry (%) 100 08/13/18 15:12 ED Treatment Course - LABORATORY CBC & Chemistry Diagram: 08/14/18 05:00 08/14/18 06:00 - RADIOLOGY Radiology Studies Ordered: Category Date Time Status ABDOMEN & PELVIS CT WITH CONTR [CT] Stat CT Scan 08/13/18 15:[address] W/O CONTR [CT] Stat CT Scan 08/13/18 15:[address] WITHOUT CONTRAST [CT] Stat CT Scan 08/13/18 15:[address] W/O CONTRAST [CT] Stat CT Scan 08/13/18 15:[address] WITHOUT CONTRAST [CT] Stat CT Scan 08/13/18 15:28 Ordered Medical Decision Making - Medical Decision Making 08/13/18 17:27 Patient is an 88 year old male who presents here s/p mechanical fall and now complaining of back pain, right rib pain, left groin pain, and shortness of breat. Will need to rule out any acute fractures or dislocations, acute CHF exacerbation. -CBC, CMP, Cardiac profile, mag and phos, TSH -CT head, chest, spin, abdomen, facial bones -Scrotum U/S due to left scrotal pain, edema, and tenderness -Will give a dose of Lasix. -EKG, CXR 08/13/18 17:48 -Potassium 3.1. Order of KCl 40meq ordered -Glucose 40's. D50 25gm IVP ordered 08/13/18 17:49 -Sign out given to Dr. Davila *DC/Admit/Observation/Transfer Diagnosis at time of Disposition: Acute CHF - Referrals - Patient Instructions - Post Discharge Activity
[2018-08-13] MEDS ORDERED: ONDANSETRON 4 MG TABLET PO ONE (16:10)
--- NOTE | 2018-08-13 16:14 | PDOC ---
Attending Attestation - Resident Resident Name: Kim Kimeen - ED Attending Attestation I have performed the following: I have examined & evaluated the patient, The case was reviewed & discussed with the resident, I agree w/resident's findings & plan, Exceptions are as noted - HPI HPI: 08/13/18 16:09 88 M with h/o Aortic Aneurysm s/p repair (03/2018), BPH, diastolic CHF, colon ca s/p resection, presenting to ED with weakness and falls. Pt initially fell 2 days ago after trying to answer the phone without his walker. Pt was helped up by EMS but did not come to hospital at that time. Today, daughter noted that pt was extremely weak. She notes that his legs have become very swollen bilaterally , extending up into his abdomen. Pt endorses occasional SOB. Denies CP. Endorses worsening swelling in his legs as well as scrotum. - Physicial Exam PE: 08/13/18 16:18 "GENERAL: Awake, alert, and fully oriented, in no acute distress. HEAD: No signs of trauma EYES: PERRLA, EOMI, sclera anicteric, conjunctiva clear ENT: Auricles normal inspection, hearing grossly normal, nares patent, oropharynx clear without exudates. Moist mucosa NECK: Nontender, no stepoffs, Normal ROM, supple, no lymphadenopathy, JVD, or masses LUNGS: Breath sounds equal, clear to auscultation bilaterally. No wheezes, and no crackles HEART: Regular rate and rhythm, normal S1 and S2, no murmurs, rubs or gallops ABDOMEN: Soft, nontender, normoactive bowel sounds. No guarding, no rebound. No masses EXTREMITIES: + 2 PE BLE extending to abdomen, Normal range of motion, No clubbing or cyanosis. No cords, erythema, or tenderness : + Edema to scrotum bilaterally, no erythema NEUROLOGICAL: Cranial nerves II through XII intact. 5/5 strength and sensation in all extremities, Normal speech, normal gait, normal cerebellar function SKIN: Warm, Dry, normal turgor, no rashes or lesions noted. - Medical Decision Making 08/13/18 16:19 88 M with recurrent falls, weakness, SOB, and pitting edema. Concerning for acute CHF exacerbation. Pt with no significant external signs of trauma. However , given recurrent falls, will obtain full trauma panel. - Labs, BNP, cardiac enzymes, CPK - CT head/facial bones/spine/pelvis/chest 08/13/18 17:56 Labs notable for elevated BNP, otherwise unremarkable Pt signed out to oncoming attending, pending imaging and admission to hospital.
[2018-08-13 16:36] LABS: EOS % 0.1 % (0-4.5); HEMATOCRIT 29.8 % (35.4-49); HEMOGLOBIN 10.6 GM/dL (11.7-16.9); LYMPH % 4.1 % (8-40); MCH 34.4 pg (25.7-33.7); MCHC 35.7 g/dl (32.0-35.9); MEAN CELL VOLUME 96.5 fl (80-96); MEAN PLT VOLUME 8.3 fl (7.5-11.1); MONO % 2.8 % (3.8-10.2); PLATELET COUNT 155 K/MM3 (134-434); RBC 3.08 M/mm3 (4.00-5.60); WHITE BLOOD COUNT 9.2 K/mm3 (4.0-10.0)
[2018-08-13 17:32] LABS: ALBUMIN 1.9 g/dl (3.4-5.0); ALK PHOS 84 U/L (45-117); ANION GAP 7 MMOL/L (8-16); BILIRUBIN,TOTAL 0.7 mg/dL (0.2-1); BLOOD UREA NITROGEN 17 mg/dL (7-18); CHLORIDE 100 mmol/L (98-107); CO2 27 mmol/L (21-32); CREATININE 0.7 mg/dL (0.55-1.3); MAGNESIUM 1.9 mg/dL (1.8-2.4); PHOSPHOROUS 2.6 mg/dL (2.5-4.9); POTASSIUM 3.2 mmol/L (3.5-5.1); SGOT/AST 34 U/L (15-37); SGPT/ALT 28 U/L (13-61); SODIUM 133 mmol/L (136-145); TOT PROT 4.9 g/dl (6.4-8.2)
[2018-08-13 17:36] LABS: GLUCOSE,RANDOM 48 mg/dL (74-106)
[2018-08-13] MEDS ORDERED: DEXTROSE 50%-WATER - 25 GM/50 ML VIAL IVPUSH ONE (17:48)
[2018-08-13] MEDS ORDERED: POTASSIUM CHLORIDE TABS 20 MEQ TABLET.ER (FP) PO ONE ×5 (17:48→20:48)
[2018-08-13 18:20] LABS: PLATELET ESTIMATE NORMAL
[2018-08-13] MEDS ORDERED: DEXTROSE 50%-WATER 25 GM/50 ML DISP.SYRIN ONE (18:20)
[2018-08-13] MEDS ORDERED: FUROSEMIDE 40 MG/4 ML INJECTABLE VIAL IVPUSH ONE (19:23)
[2018-08-13] MEDS ORDERED: FUROSEMIDE 40 MG/4 ML INJECTABLE VIAL ONE (19:29)
--- NOTE | 2018-08-13 19:33 | PDOC ---
*Physical Exam - Vital Signs Last Vital Signs Temp Pulse Resp BP Pulse Ox 98.7 F 80 17 115/65 100 08/13/18 15:02 08/13/18 15:02 08/13/18 15:02 08/13/18 15:02 08/13/18 15:12 - Physical Exam General Appearance: No: Apparent Distress HEENT: positive: Normal Voice Respiratory/Chest: positive: Other (Nasal cannula in place.). negative: Respiratory Distress ED Treatment Course - LABORATORY CBC & Chemistry Diagram: 08/13/18 15:50 08/13/18 15:50 - ADDITIONAL ORDERS Additional order review: Laboratory Results 08/13/18 08/13/18 08/13/18 18:10 15:50 15:50 Sodium 133 L Potassium 3.2 L Chloride 100 Carbon Dioxide 27 Anion Gap 7 L BUN 17 Creatinine 0.7 Creat Clearance w eGFR > 60 POC Glucometer 64.44646 Random Glucose 48 L* Calcium 7.0 L Phosphorus 2.6 Magnesium 1.9 Total Bilirubin 0.7 AST 34 ALT 28 Alkaline Phosphatase 84 Creatine Kinase 266 Creatine Kinase Index 1.1 CK-MB (CK-2) 3.1 Troponin I 0.03 B-Natriuretic Peptide 5161.8 H Total Protein 4.9 L Albumin 1.9 L TSH 2.66 08/13/18 08/13/18 18:10 15:50 RBC 3.08 L MCV 96.5 H MCHC 35.7 RDW 14.0 MPV 8.3 Neutrophils % 93.0 H Lymphocytes % 4.1 L Monocytes % 2.8 L Eosinophils % 0.1 D Basophils % 0.0 POC Glucometer 64.54988 - RADIOLOGY Radiograph Interpretation: Head CT Nuno Pierce MD wrote on Aug 13, 2018 at 07:37 PM: Referring Physician: SHAYAN MAGAÑA Patient Name: LANNY WASHINGTON THIS IS A PRELIMINARY REPORT FROM [facility] DATE OF SERVICE: 2018-08-13 17:21:34 IMAGES: 146 EXAM: HEAD CT WITHOUT CONTRAST HISTORY: Fall COMPARISON: None. 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 There is no acute intra-or extra-axial hemorrhage or collection. No mass lesion or midline shift. There is moderate cortical atrophy. The ventricles are nonenlarged and are symmetric and midline in position Normal pandya-white matter differentiation. Low attenuation in the periventricular white matter compatible with chronic microvascular ischemic changes. The calvarium is intact. The visualized paranasal sinuses and mastoid air cells are clear. One or more of the following dose reduction techniques were used: automated exposure control, adjustment of the mA and/or kV according to patient size, use of iterative reconstructive technique. THIS DOCUMENT HAS BEEN ELECTRONICALLY SIGNED Nuno Pierce MD 08/13/2018 19:[address] Nuno Pierce MD wrote on Aug 13, 2018 at 07:28 PM: Referring Physician: SHAYAN MAGAÑA Patient Name: LANNY WASHINGTON THIS IS A PRELIMINARY REPORT FROM [facility] DATE OF SERVICE: 2018-08-13 17:30:00 IMAGES: [id number] EXAM: CHEST CT WITHOUT CONTRAST HISTORY: Fall COMPARISON: None. FINDINGS: Moderate to large bilateral pleural effusions with overlying atelectasis, larger on the right side No pneumothorax. No airspace infiltrates. Fibrotic scarring in the right upper lobe The tracheobronchial tree is patent The heart appears mildly enlarged. There are coronary artery calcifications. Small pericardial effusion Atherosclerotic calcifications in the thoracic aorta with mild aneurysmal dilatation of the ascending aorta measuring up to 3.7 cm in greatest transverse dimension Likely endograft in the abdominal aorta which is not completely imaged The bony thorax is intact Few scattered sclerotic lesions of the spine, right eighth and ninth ribs are possibly bone islands Ascites in the visualized upper abdomen One or more of the following dose reduction techniques were used: automated exposure control, adjustment of the mA and/or kV according to patient size, use of iterative reconstructive technique. THIS DOCUMENT HAS BEEN ELECTRONICALLY SIGNED Nuno Pierce MD 08/13/2018 19:[address] Nuno Pierce MD wrote on Aug 13, 2018 at 07:32 PM: Referring Physician: HUMZA HERRERA Patient Name: LANNY WASHINGTON THIS IS A PRELIMINARY REPORT FROM [facility] DATE OF SERVICE: 2018-08-13 17:41:32 IMAGES: 500 EXAM: PELVIS CT WITHOUT CONTRAST HISTORY: Fall COMPARISON: None. FINDINGS: The bony pelvis is intact The hips are intact without dislocation Ascites in the visualized lower abdomen and pelvis Moderate fecal retention in the visualized portions of the colon Anastomotic suture line in the sigmoid colon Biiliac stent grafts are noted with infrarenal abdominal aortic aneurysm. Visualized portion measures 4.6 x 5.0 cm in AP and transverse dimension One or more of the following dose reduction techniques were used: automated exposure control, adjustment of the mA and/or kV according to patient size, use of iterative reconstructive technique. THIS DOCUMENT HAS BEEN ELECTRONICALLY SIGNED Nuno Pierce MD 08/13/2018 19:[address] Nuno Pierce MD wrote on Aug 13, 2018 at 07:40 PM: Referring Physician: SHAYAN MAGAÑA Patient Name: LANNY WASHINGTON THIS IS A PRELIMINARY REPORT FROM [facility] DATE OF SERVICE: 2018-08-13 17:17:45 IMAGES: 321 EXAM: CERVICAL SPINE CT W/O CONTR HISTORY: Fall COMPARISON: None. FINDINGS: There is no fracture or subluxation Bony alignment is normal The vertebral body heights and disc spaces are preserved Sclerotic lesion in the T2 vertebral body may be a bone island The prevertebral soft tissues are within normal limits Bilateral moderate to large pleural effusions and fibrotic scarring in the right upper lobe One or more of the following dose reduction techniques were used: automated exposure control, adjustment of the mA and/or kV according to patient size, use of iterative reconstructive technique. THIS DOCUMENT HAS BEEN ELECTRONICALLY SIGNED Nuno Pierce MD 08/13/2018 19:[address] Nuno Pierce MD wrote on Aug 13, 2018 at 07:22 PM: Referring Physician: HUMZA HERRERA Patient Name: LANNY WASHINGTON THIS IS A PRELIMINARY REPORT FROM [facility] DATE OF SERVICE: 2018-08-13 17:33:59 IMAGES: 303 EXAM: THORACIC SPINE CT W/O CONTRAST HISTORY: Fall COMPARISON: None. FINDINGS: There is no fracture or subluxation. Bony alignment is normal The vertebral body heights and disc spaces are preserved Multilevel small marginal endplate osteophytes Scattered small sclerotic lesions in the spine and medial right ninth rib are suspected to be incidental bone islands. Moderate to large bilateral pleural effusions, larger on the right side One or more of the following dose reduction techniques were used: automated exposure control, adjustment of the mA and/or kV according to patient size, use of iterative reconstructive technique. THIS DOCUMENT HAS BEEN ELECTRONICALLY SIGNED Nuno Pierce MD 08/13/2018 19:20 EST Scrotal Ultrasound Nuno Pierce MD wrote on Aug 13, 2018 at 08:26 PM: Referring Physician: SHAYAN MAGAÑA Patient Name: LANNY WASHINGTON THIS IS A PRELIMINARY REPORT FROM [facility] DATE OF SERVICE: 2018-08-13 18:18:28 IMAGES: 82 EXAM: SCROTUM AND CONTENTS US HISTORY: Left sided groin and testicular pain COMPARISON: None. FINDINGS: The testicles are normal in size and echogenicity. There is a 1.6 cm simple appearing cyst in the right testicle. Normal symmetric flow is demonstrated to both testicles on Doppler evaluation Cyst in the right epididymal head measuring 0.6 cm and cyst in the body of the right epididymis measuring 0.4 cm The left epididymis is unremarkable Trace right and small to moderate left hydroceles Right varicocele THIS DOCUMENT HAS BEEN ELECTRONICALLY SIGNED Nuno Pierce MD 08/13/2018 20:25 EST - Medications Given in the ED: ED Medications Discontinued Medications Generic Name Dose Route Start Last Admin Trade Name Freq PRN Reason Stop Dose Admin Dextrose 25 gm 08/13/18 17:48 08/13/18 18:41 D50w (Vial) - IVPUSH 08/13/18 17:49 25 gm NOW ONE Administration Ondansetron HCl 4 mg 08/13/18 16:10 08/13/18 16:14 Zofran - PO 08/13/18 16:11 Not Given ONCE ONE Potassium Chloride 40 meq 08/13/18 17:48 08/13/18 18:41 K-Dur - PO 08/13/18 17:49 40 meq ONCE ONE Administration Medical Decision Making - Medical Decision Making 08/13/18 19:27 Received sign out from resident Dr. Kim. In short, pt is a 88 y /o male presenting for shortness of breath and pain to right flank, left groin, and bilateral lower back pain. S/p multiple falls recently. Labs were remarkable for hypoglycemia, which was corrected with D50. Mild hypokalemia, which was corrected with PO potassium. Physical exam revealed pitting edema in both lower extremities and possible abdominal ascities. Concern for possible CHF exacerbation in setting of known diastolic heart failure. 40mg Lasix has been ordered. CT scans and testicular U/S reads are pending. Anticipate admission. CT scans and U/S unremarkable for acute traumatic injury. Bilateral pleural effusions present. Concern for acute CHF given effusions, bilateral pitting edema, and abdominal ascites. BNP significantly elevated above last recorded in [facility] from 06/2018. Hypokalemia replenished with 60mg PO potassium. Ordered magnesium and Lasix. 08/13/18 21:58 Telephone page sent to Dr. Kevin. Awaiting call back. 08/13/18 22:[address] Kevin. Verbally appraised of the pt s HPI, ED course, and current plan of management. Requested the pt be made a hospitalist service pt. Microblog sent to [facility] Admitting. 08/13/18 22:29 Telephone consultation with resident Dr. Gatica. Verbally appraised of the pts HPI, ED course, and current plan of management. Agrees to admit pt to telemetry on inpatient status for Dr. Esqueda. *DC/Admit/Observation/Transfer Diagnosis at time of Disposition: Acute CHF Qualifiers: Heart failure type: unspecified Qualified Code(s): I50.9 - Heart failure, unspecified - Discharge Dispostion Decision to Admit order: Yes - Referrals Referrals: Vince Kevin MD [Primary Care Provider] - - Patient Instructions - Post Discharge Activity
[2018-08-13] MEDS ORDERED: MAGNESIUM SULF 50% (8.12 MEQ/2 ML-1 GM VIAL) IVPB ONE (19:45)
[2018-08-13] MEDS ORDERED: MAGNESIUM 1GM/D5W - 1 GM/100 ML IVPB IVPB ONE (20:29)
[2018-08-13] MEDS ORDERED: BACITRACIN 0.9 GM PACKET ONE (21:24)
--- NOTE | 2018-08-13 22:45 | PN ---
Teaching Attending Note Name of Resident: Elias Blair ATTENDING PHYSICIAN STATEMENT I saw and evaluated the patient. I reviewed the resident's note and discussed the case with the resident. I agree with the resident's findings and plan as documented. SUBJECTIVE: Patient is an 88 year old man with a PMH of Aortic Aneurysm s/p repair (03/2018) , BPH, diastolic CHF, colon ca s/p resection who presents after a mechanical fall. According to patients daughter, he was in bed Tuesday (08/11/18), heard the phone ring and got out of bed for the phone without using his walker. His daughter found him on the floor flat. He reports he was unable to get up due to the pain so she called EMS. When EMS arrived, patient was feeling better and decided against hospital transfer. The following day, he started experiencing difficulty ambulating and had near fall episodes. Today patient continued to have gait abnormalities and started experiencing short of breath. He reports right sided rib/back pain associated with right groin/scrotal pain and shortness of breath. Patient's daughter reports he's been experiencing frequent falls in the last couple of months. Patient otherwise denies any fever, chills, nausea, vomiting, dizziness, chest pain, palpitations, abdominal pain, loss of consciousness, hemoptysis, urinary or bowel incontinence, diarrhea, constipation. OBJECTIVE: Alert and cachectic Vital Signs Period Temp Pulse Resp BP Sys/Olguin Pulse Ox Last 24 Hr 98.7 F 80 17 115/65 100-100 HEENT: No Jaundice, eye redness or discharge, PERRLA, EOMI. Normocephalic, atraumatic. External ears are normal and hearing is grossly intact. No nasal discharge. Neck: Supple, nontender. No palpable adenopathy or thyromegaly. No JVD Chest: Good effort. Clear to auscultation and percussion. Heart: Regular. No S3, rub or murmur Abdomen: Not distended, soft, nontender and no HSM. No rebound or guarding. Normoactive bowel sounds. Ext: Peripheral pulses intact. Leg edema L>R, with wrinkled skin. Skin: Warm and dry. No petechiae or rash. Ecchymosis in both arms and healed abrasions. Neuro: Alert. Oriented x3. CN 2-12 grossly intact. Sensation grossly intact in all four extremities and DTR are symmetric. : Tender left testicle Home Medications Medication Instructions Recorded Aspirin [ASA -] 81 mg PO DAILY 06/27/18 Loperamide HCl [Imodium -] 2 mg PO DAILY 06/27/18 Tamsulosin HCl 0.4 mg PO DAILY 06/27/18 Zolpidem Tartrate [Ambien] 5 mg PO HS 06/27/18 Furosemide [Lasix] 20 mg PO ASDIR 08/13/18 Abnormal Lab Results 08/13/18 08/13/18 08/13/18 15:50 15:50 15:50 RBC 3.08 L Hgb 10.6 L Hct 29.8 L MCV 96.5 H MCH 34.4 H Absolute Neuts (auto) 8.6 H Neutrophils % 93.0 H Neutrophils % (Manual) 84.3 H Lymphocytes % 4.1 L Lymphocytes % (Manual) 1.0 L Monocytes % 2.8 L Monocytes % (Manual) 2 L Sodium 133 L Potassium 3.2 L Anion Gap 7 L Random Glucose 48 L* Calcium 7.0 L B-Natriuretic Peptide 5161.8 H Total Protein 4.9 L Albumin 1.9 L ASSESSMENT AND PLAN: 1. Fall/CHF exacerbation - Radiologic studies revealed chronic subdural hematoma , ascites, bilateral pleural effusion and right testicular cyst. Patient is responding well to IV lasix. Will get daily weight, restrict salt intake and consult PT. EKG shows nonspecific t wave changes - will get a repeat EKG. Get ECHO. Recurrent falls may signal global debility from his multiple comorbid issues. Consult neurology. Hypoglycemia is unexplained. There is no evidence of sepsis. Hypokalemia due to diureses and poor intake. Getting IV and PO KCL. Will use a scrotal sling for elevation and consult urology if scrotal pain persists. Patient lives alone, gets help a few days a week and is malnourished. Consult social work to explore SNF placement with family. 2. Severe Hypoalbuminemia - Possibly due to combined effects of malnutrition and inflammation associated with comorbid chronic conditions. Will ensure adequate dietary protein intake and also consult sample maker hand. 3. Anemia - Likely multifactorial with high MCV. Will check Vit B12, folate levels and do serial stool guaiacs, reticulocyte count and iron studies. 4. DVT prophylaxis - Lovenox 40 mg SQ q 24 hours. 5. Advance directives - Full code
--- NOTE | 2018-08-13 22:46 | HP ---
CHIEF COMPLAINT: PCP: HISTORY OF PRESENT ILLNESS: 88 yo M w/ PMH of Aortic Aneurysm s/p repair (03/2018), BPH, diastolic CHF, colon ca s/p resection, frequent falls since aortic repair, presents after an unwitnessed mechanical fall 2 days ago. According to patients daughter, he was in bed Tuesday (08/11/18), heard the phone ring and got out of bed for the phone without using his walker. Patient's daughter went to his house that afternoon and found him on the floor flat. He reports he was unable to get up due to the pain so she called EMS. When EMS arrived, patient was feeling better and decided against hospital transfer. Patient the following day started experiencing difficulty ambulating and had near fall episodes. Then today patient continued to have gait abnormalities and started experiencing short of breath, which prompted this hospital visit. Patient reports right sided rib/ back pain associated with right groin/scrotal pain and short of breath. Patient 's daughter reports he's been experiencing frequent falls due to worsening leg swelling/edema in the last few months since his aortic repair surgery. Denies any fever, chills, n/v/d, dizziness, chest pain, palpitations, abdominal pain, LOC, hemoptysis, urinary or bowel incontinence, constipation. ER course was notable for: (1) KDUR 60, lasix 40, D5OW, Mag 1g (2) CT head, cspine, T spine, chest, pelvic. 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 Family History: Allergies No Known Allergies Allergy (Verified 08/13/18 15:06) HOME MEDICATIONS: Home Medications Medication Instructions Recorded Aspirin [ASA -] 81 mg PO DAILY 06/27/18 Loperamide HCl [Imodium -] 2 mg PO DAILY 06/27/18 Tamsulosin HCl 0.4 mg PO DAILY 06/27/18 Zolpidem Tartrate [Ambien] 5 mg PO HS 06/27/18 Furosemide [Lasix] 20 mg PO ASDIR 08/13/18 REVIEW OF SYSTEMS as per HPI PHYSICAL EXAMINATION Vital Signs - 24 hr 08/13/18 08/13/18 15:02 15:12 Temperature 98.7 F Pulse Rate 80 Respiratory 17 Rate Blood Pressure 115/65 O2 Sat by Pulse 100 100 Oximetry (%) GENERAL: AOX3 NAD, cachetic appearing HEAD: minor abrasions b/l infraorbital/zygomatic arch EYES: extraocular movements intact, sclera anicteric, conjunctiva clear. No lid lag. EARS, NOSE, THROAT: nares patent, oropharynx clear without exudates. MMM NECK: Normal range of motion, supple without lymphadenopathy, or masses. LUNGS: decreased breath sounds b/l more prominent on R. no wheezing or crackles HEART: RRR, normal S1 and S2 +murmur ABDOMEN: Soft-mild tense, mild TTP RLQ, mild distension, + bowel sounds, no guarding, no rebound, no masses. MUSCULOSKELETAL: Normal range of motion at all joints. No bony deformities or tenderness. UPPER EXTREMITIES: 2+ pulses, warm, well-perfused. No cyanosis. No clubbing. No peripheral edema. LOWER EXTREMITIES: 2+ pulses, warm, well-perfused. No calf tenderness. 2+ peripheral edema extending to abdomen : + Edema to scrotum bilaterally, no erythema NEUROLOGICAL: Cranial nerves II-XII intact. Normal speech. PSYCHIATRIC: Cooperative. Good eye contact. Appropriate mood and affect. SKIN: Warm, + echymosis, +edema Laboratory Results - last 24 hr 08/13/18 08/13/18 08/13/18 15:50 15:50 15:50 WBC 9.2 RBC 3.08 L Hgb 10.6 L Hct 29.8 L MCV 96.5 H MCH 34.4 H MCHC 35.7 RDW 14.0 Plt Count 155 MPV 8.3 Absolute Neuts (auto) 8.6 H Neutrophils % 93.0 H Neutrophils % (Manual) 84.3 H Band Neutrophils % 12.7 Lymphocytes % 4.1 L Lymphocytes % (Manual) 1.0 L Monocytes % 2.8 L Monocytes % (Manual) 2 L Eosinophils % 0.1 D Eosinophils % (Manual) 0.0 Basophils % 0.0 Basophils % (Manual) 0.0 Myelocytes % (Man) 0 Promyelocytes % (Man) 0 Blast Cells % (Manual) 0 Nucleated RBC % 0 Metamyelocytes 0 Platelet Estimate Normal Sodium 133 L Potassium 3.2 L Chloride 100 Carbon Dioxide 27 Anion Gap 7 L BUN 17 Creatinine 0.7 Creat Clearance w eGFR > 60 POC Glucometer Random Glucose 48 L* Calcium 7.0 L Phosphorus 2.6 Magnesium 1.9 Total Bilirubin 0.7 AST 34 ALT 28 Alkaline Phosphatase 84 Creatine Kinase 266 Creatine Kinase Index 1.1 CK-MB (CK-2) 3.1 Troponin I 0.03 B-Natriuretic Peptide 5161.8 H Total Protein 4.9 L Albumin 1.9 L TSH 2.66 08/13/18 18:10 WBC RBC Hgb Hct MCV MCH MCHC RDW Plt Count MPV Absolute Neuts (auto) Neutrophils % Neutrophils % (Manual) Band Neutrophils % Lymphocytes % Lymphocytes % (Manual) Monocytes % Monocytes % (Manual) Eosinophils % Eosinophils % (Manual) Basophils % Basophils % (Manual) Myelocytes % (Man) Promyelocytes % (Man) Blast Cells % (Manual) Nucleated RBC % Metamyelocytes Platelet Estimate Sodium Potassium Chloride Carbon Dioxide Anion Gap BUN Creatinine Creat Clearance w eGFR POC Glucometer [id number] Random Glucose Calcium Phosphorus Magnesium Total Bilirubin AST ALT Alkaline Phosphatase Creatine Kinase Creatine Kinase Index CK-MB (CK-2) Troponin I B-Natriuretic Peptide Total Protein Albumin TSH Head CT Nuno Pierce MD wrote on Aug 13, 2018 at 07:37 PM: Referring Physician: SHAYAN MAGAÑA Patient Name: LANNY WASHINGTON THIS IS A PRELIMINARY REPORT FROM [facility] DATE OF SERVICE: 2018-08-13 17:21:34 IMAGES: [id number] EXAM: HEAD CT WITHOUT CONTRAST HISTORY: Fall COMPARISON: None. 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 There is no acute intra-or extra-axial hemorrhage or collection. No mass lesion or midline shift. There is moderate cortical atrophy. The ventricles are nonenlarged and are symmetric and midline in position Normal pandya-white matter differentiation. Low attenuation in the periventricular white matter compatible with chronic microvascular ischemic changes. The calvarium is intact. The visualized paranasal sinuses and mastoid air cells are clear. One or more of the following dose reduction techniques were used: automated exposure control, adjustment of the mA and/or kV according to patient size, use of iterative reconstructive technique. THIS DOCUMENT HAS BEEN ELECTRONICALLY SIGNED Nuno Pierce MD 08/13/2018 19:[address] Nuno Pierce MD wrote on Aug 13, 2018 at 07:28 PM: Referring Physician: SHAYAN MAGAÑA Patient Name: LANNY WASHINGTON THIS IS A PRELIMINARY REPORT FROM [facility] DATE OF SERVICE: 2018-08-13 17:30:00 IMAGES: [id number] EXAM: CHEST CT WITHOUT CONTRAST HISTORY: Fall COMPARISON: None. FINDINGS: Moderate to large bilateral pleural effusions with overlying atelectasis, larger on the right side No pneumothorax. No airspace infiltrates. Fibrotic scarring in the right upper lobe The tracheobronchial tree is patent The heart appears mildly enlarged. There are coronary artery calcifications. Small pericardial effusion Atherosclerotic calcifications in the thoracic aorta with mild aneurysmal dilatation of the ascending aorta measuring up to 3.7 cm in greatest transverse dimension Likely endograft in the abdominal aorta which is not completely imaged The bony thorax is intact Few scattered sclerotic lesions of the spine, right eighth and ninth ribs are possibly bone islands Ascites in the visualized upper abdomen One or more of the following dose reduction techniques were used: automated exposure control, adjustment of the mA and/or kV according to patient size, use of iterative reconstructive technique. THIS DOCUMENT HAS BEEN ELECTRONICALLY SIGNED Nuno Pierce MD 08/13/2018 19:[address] Nuno Pierce MD wrote on Aug 13, 2018 at 07:32 PM: Referring Physician: HUMZA HERRERA Patient Name: LANNY WASHINGTON THIS IS A PRELIMINARY REPORT FROM [facility] DATE OF SERVICE: 2018-08-13 17:41:32 IMAGES: 500 EXAM: PELVIS CT WITHOUT CONTRAST HISTORY: Fall COMPARISON: None. FINDINGS: The bony pelvis is intact The hips are intact without dislocation Ascites in the visualized lower abdomen and pelvis Moderate fecal retention in the visualized portions of the colon Anastomotic suture line in the sigmoid colon Biiliac stent grafts are noted with infrarenal abdominal aortic aneurysm. Visualized portion measures 4.6 x 5.0 cm in AP and transverse dimension One or more of the following dose reduction techniques were used: automated exposure control, adjustment of the mA and/or kV according to patient size, use of iterative reconstructive technique. THIS DOCUMENT HAS BEEN ELECTRONICALLY SIGNED Nuno Pierce MD 08/13/2018 19:[address] Nuno Pierce MD wrote on Aug 13, 2018 at 07:40 PM: Referring Physician: SHAYAN MAGAÑA Patient Name: LANNY WASHINGTON THIS IS A PRELIMINARY REPORT FROM [facility] DATE OF SERVICE: 2018-08-13 17:17:45 IMAGES: [id number] EXAM: CERVICAL SPINE CT W/O CONTR HISTORY: Fall COMPARISON: None. FINDINGS: There is no fracture or subluxation Bony alignment is normal The vertebral body heights and disc spaces are preserved Sclerotic lesion in the T2 vertebral body may be a bone island The prevertebral soft tissues are within normal limits Bilateral moderate to large pleural effusions and fibrotic scarring in the right upper lobe One or more of the following dose reduction techniques were used: automated exposure control, adjustment of the mA and/or kV according to patient size, use of iterative reconstructive technique. THIS DOCUMENT HAS BEEN ELECTRONICALLY SIGNED Nuno Pierce MD 08/13/2018 19:[address] Nuno Pierce MD wrote on Aug 13, 2018 at 07:22 PM: Referring Physician: HUMZA HERRERA Patient Name: LANNY WASHINGTON THIS IS A PRELIMINARY REPORT FROM [facility] DATE OF SERVICE: 2018-08-13 17:33:59 IMAGES: 303 EXAM: THORACIC SPINE CT W/O CONTRAST HISTORY: Fall COMPARISON: None. FINDINGS: There is no fracture or subluxation. Bony alignment is normal The vertebral body heights and disc spaces are preserved Multilevel small marginal endplate osteophytes Scattered small sclerotic lesions in the spine and medial right ninth rib are suspected to be incidental bone islands. Moderate to large bilateral pleural effusions, larger on the right side One or more of the following dose reduction techniques were used: automated exposure control, adjustment of the mA and/or kV according to patient size, use of iterative reconstructive technique. THIS DOCUMENT HAS BEEN ELECTRONICALLY SIGNED Nuno Pierce MD 08/13/2018 19:20 EST Scrotal Ultrasound Nuno Pierce MD wrote on Aug 13, 2018 at 08:26 PM: Referring Physician: SHAYAN MAGAÑA Patient Name: LANNY WASHINGTON THIS IS A PRELIMINARY REPORT FROM [facility] DATE OF SERVICE: 2018-08-13 18:18:28 IMAGES: 82 EXAM: SCROTUM AND CONTENTS US HISTORY: Left sided groin and testicular pain COMPARISON: None. FINDINGS: The testicles are normal in size and echogenicity. There is a 1.6 cm simple appearing cyst in the right testicle. Normal symmetric flow is demonstrated to both testicles on Doppler evaluation Cyst in the right epididymal head measuring 0.6 cm and cyst in the body of the right epididymis measuring 0.4 cm The left epididymis is unremarkable Trace right and small to moderate left hydroceles Right varicocele THIS DOCUMENT HAS BEEN ELECTRONICALLY SIGNED Nuno Pierce MD 08/13/2018 20:25 EST ASSESSMENT/PLAN: 88 yo M w/ PMH of Aortic Aneurysm s/p repair (03/2018), BPH, diastolic CHF, colon ca s/p resection, frequent falls since aortic repair, presents after an unwitnessed mechanical fall 2 days ago and now c/o SOB w/ worsening leg swelling. CHF exacerbation - Concern for acute CHF given effusions (CT chest), b/l pitting edema, and abdominal ascites. BNP significantly elevated above last recorded in [employer] from 06/2018. BNP 5161 s/p Kdur 60, IV lasix 40, Mag 1g in ED Cardio consult IV lasix 40 BID strict I/O <2g Na, <1.5L free water daily weights Echo cardiac monitoring Kdur 40mg BID 10 K IV x2 STAT O2 prn PT eval c/w home ASA EKG - NSR 79 w/ PACs,no ischemic changes, Qtc 415. Low voltage QRS c/w small pericardial effusion seen on CT Fall - CT head, cspine, T spine, chest, pelvic imaging reviewed above, unremarkable for acute traumatic injury no evidence of frx fall precautions PT eval Scrotal swelling U/S unremarkable for acute traumatic injury scrotal sling/support 1.6 cm simple appearing cyst in the right testicle. Trace right and small to moderate left hydroceles Right varicocele can f/u outpt Macrocytic Anemia - Likely multifactorial with high MCV and is on iron pills at home. check Vit B12, folate levels reticulocyte count and iron studies. c/w home dose iron 325 BPH home dose tamsulosin Hypoglycemia - glucose 48 s/p D50W in ED monitor FEN no IVF replete prn low sodium diet DVT prophylaxis - Lovenox 40 mg SQ qd Full code Dispo Tele pt daughter requesting NH or SNF, as feels that father needs extra care/ assistance. will need to talk to SW. Visit type - Emergency Visit Emergency Visit: Yes ED Registration Date: 08/13/18 Care time: The patient presented to the Emergency Department on the above date and was hospitalized for further evaluation of their emergent condition. - New Patient This patient is new to me today: Yes Date on this admission: 08/14/18 - Critical Care Critical Care patient: No
[2018-08-13 23:28] LABS: URINE APPEARANCE CLEAR; URINE BILIRUBIN NEGATIVE (<2.0 mg/dL); URINE COLOR STRAW; URINE GLUCOSE (UA) NEGATIVE (NEGATIVE); URINE KETONE NEGATIVE (NEGATIVE); URINE LEUK ESTERASE NEGATIVE (NEGATIVE); URINE NITRITE NEGATIVE (NEGATIVE); URINE PROTEIN NEGATIVE (NEGATIVE); URINE UROBILINOGEN NEGATIVE mg/dL (0.2-1.0)
[2018-08-13 23:45] LABS: URINE BACTERIA RARE /hpf (NONE SEEN); URINE HYALINE CAST 6 /lpf; URINE MUCUS RARE
[2018-08-14] MEDS ORDERED: ACETAMINOPHEN 325 MG TABLET (FP) PO PRN (00:31)
[2018-08-14] MEDS ORDERED: KCL 10 MEQ IVPB 10 MEQ/100 ML INFUS.BAG IVPB ONE ×2 (01:19→03:11)
[2018-08-14] MEDS: KCL 10 MEQ IVPB 10 MEQ/100 ML INFUS.BAG IVPB SCH ×2 (01:23→02:01)
[2018-08-14] MEDS ORDERED: POTASSIUM CHLORIDE TABS 10 MEQ TABLET.ER (FP) ONE (03:10)
[2018-08-14] MEDS: FUROSEMIDE 40 MG/4 ML INJECTABLE VIAL IVPUSH SCH ×2 (06:06→14:00)
[2018-08-14 06:30] LABS: BASO % 0.1 % (0-2.0); HEMATOCRIT 28.8 % (35.4-49); HEMOGLOBIN 10.3 GM/dL (11.7-16.9); LYMPH % 4.5 % (8-40); MCH 34.6 pg (25.7-33.7); MCHC 35.8 g/dl (32.0-35.9); MEAN CELL VOLUME 96.6 fl (80-96); MONO % 3.9 % (3.8-10.2); NEUT % 91.5 % (42.8-82.8); PLATELET COUNT 145 K/MM3 (134-434); RBC 2.99 M/mm3 (4.00-5.60); WHITE BLOOD COUNT 7.7 K/mm3 (4.0-10.0)
[2018-08-14] MEDS: FERROUS SO4 325 MG TABLET (FP) PO SCH (08:00)
[2018-08-14 08:02] LABS: ALBUMIN 1.9 g/dl (3.4-5.0); ALK PHOS 83 U/L (45-117); ANION GAP 6 MMOL/L (8-16); BILIRUBIN,TOTAL 0.8 mg/dL (0.2-1); BLOOD UREA NITROGEN 16 mg/dL (7-18); CALCIUM 7.1 mg/dL (8.5-10.1); CHLORIDE 100 mmol/L (98-107); CO2 29 mmol/L (21-32); CREATININE 0.7 mg/dL (0.55-1.3); GLUCOSE,RANDOM 130 mg/dL (74-106); MAGNESIUM 1.8 mg/dL (1.8-2.4); PHOSPHOROUS 2.7 mg/dL (2.5-4.9); POTASSIUM 3.4 mmol/L (3.5-5.1); SGOT/AST 43 U/L (15-37); SGPT/ALT 29 U/L (13-61); SODIUM 136 mmol/L (136-145); TOT PROT 4.8 g/dl (6.4-8.2)
[2018-08-14] MEDS: TAMSULOSIN HCL 0.4 MG CAP PO SCH (08:30)
--- NOTE | 2018-08-14 09:42 | EKG ---
Test Reason : Blood Pressure : / mmHG Vent. Rate : 079 BPM Atrial Rate : 079 BPM P-R Int : 132 ms QRS Dur : 090 ms QT Int : 362 ms P-R-T Axes : 046 016 011 degrees QTc Int : 415 ms SINUS RHYTHM WITH PREMATURE ATRIAL COMPLEXES LOW VOLTAGE QRS NONSPECIFIC T WAVE ABNORMALITY INCOMPLETE RIGHT BUNDLE BRANCH BLOCK ABNORMAL ECG WHEN COMPARED WITH ECG OF 28-JUN-2018 06:31, PREMATURE ATRIAL COMPLEXES ARE NOW PRESENT Confirmed by PADMINI RUSHING, WES ([id number]) on 08/14/2018 9:42:17 AM Referred By: Confirmed By:WES WASHINGTON MD
[2018-08-14] MEDS ORDERED: POTASSIUM CHLORIDE TABS 20 MEQ TABLET.ER (FP) PO SCH (10:00)
[2018-08-14] MEDS: ASPIRIN 81 MG CHEWABLE TABLETS PO SCH (10:00)
[2018-08-14] MEDS: ENOXAPARIN NA (PORCINE) 40 MG/0.4 ML DISP.SYRIN SQ SCH (10:30)
--- NOTE | 2018-08-14 10:42 | CON.CARD ---
Consult Consult Specialty:: cardio - History of Present Illness Chief Complaint: s/p fall, pain History of Present Illness: 88 year old male here for painful ambulation s/p fall. on Tuesday (08/11/18), he fell b/c got out of bed to corn picker the phone and didn' t use walker, per pt/dtr report.. daughter found him on the floor later, pt declined ER visit then. the following day started experiencing difficulty ambulating and multi-focal pain, decided to come to ER. dtr states pt with marked bilat LE swelling since postop AAA repair 03/25. saw surgeon in f/u (vascular, [facility]), told to elevate legs only. since then, edema has persisted and gradually worsened of late--seeing dr kim ( pmd), no cardio, who has him on lasix 20 qod at present. pt has not c/o'd sob until yesterday per dtr, ? if assctd with mskel pain at that time no cp since the surgery he ambulates with walker notable ER findings: VS's unremarkable. LE swelling, left scrotal pain, edema, and tenderness--given dose lasix. prelim CT chest read overnight (official read pending): Moderate to large bilateral pleural effusions with overlying atelectasis, larger on the right side. No pneumothorax. No airspace infiltrates. The heart appears mildly enlarged. There are coronary artery calcifications. Small pericardial effusion Likely endograft in the abdominal aorta which is not completely image Ascites in the visualized upper abdomen PMHx: AAA s/p repair (03/2018), BPH, diastolic CHF, colon ca s/p resection. 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 History of Recent Travel: No Home Medications - Allergies Allergies/Adverse Reactions: Allergies Allergy/AdvReac Type Severity Reaction Status Date / Time No Known Allergies Allergy Verified 08/13/18 15:06 - Home Medications Home Medications: Ambulatory Orders Aspirin [ASA -] 81 mg PO DAILY 06/27/18 Loperamide HCl [Imodium -] 2 mg PO DAILY 06/27/18 Tamsulosin HCl 0.4 mg PO DAILY 06/27/18 Zolpidem Tartrate [Ambien] 5 mg PO HS 06/27/18 Furosemide [Lasix] 20 mg PO ASDIR 08/13/18 Family Disease History - Family Disease History Family History: Denies (no known cmp) Review of Systems - Review of Systems Constitutional: denies: Chills, Fever Eyes: denies: Eye Pain HENT: denies: Nasal Congestion Neck: denies: Stiffness Cardiovascular: reports: Edema. denies: Palpitations Respiratory: denies: Orthopnea, PND Gastrointestinal: denies: Diarrhea, Rectal Bleeding Genitourinary: denies: Burning, Hematuria Musculoskeletal: denies: Muscle Pain Integumentary: denies: Rash Neurological: denies: Numbness, Seizure, Syncope Endocrine: denies: Excessive Sweating Hematology/Lymphatic: denies: Excessive Bleeding Vital Signs: Vital Signs Temperature 97.8 F 08/14/18 09:53 Pulse Rate 72 08/14/18 09:53 Respiratory Rate 08/14/18 09:53 Blood Pressure 117/64 08/14/18 09:53 O2 Sat by Pulse Oximetry (%) 95 08/14/18 09:53 Constitutional: Yes: Well Nourished, No Distress Eyes: No: Sclera Icterus HENT: No: Nasal Congestion Neck: No: Decreased ROM Respiratory: Yes: Diminished (bases). No: Accessory Muscle Use, Wheezes Gastrointestinal: Yes: Normal Bowel Sounds. No: Distention, Hepatomegaly, Palpable Mass, Tenderness Cardiovascular: Yes: Regular Rate and Rhythm JVD: Yes Carotid Bruit: No PMI: Non-Displaced Heart Sounds: Yes: S1, S2. No: Gallop Murmur: No: Systolic Murmur, Diastolic Murmur Musculoskeletal: Yes: Other (No kyphosis) Extremities: No: Cool, Cyanosis Edema: Yes (1+ pretib) Peripheral Pulses: 2+ Left Carotid, 2+ Right Carotid, 2+ Left Doralis Pedis, 2+ Right Dorsalis Pedis Integumentary: No: Jaundice Neurological: Yes: Alert. No: Seizure Psychiatric: No: Agitated - Other Data Labs, Other Data: CBC, BMP 08/14/18 05:00 08/14/18 06:00 Troponin, BNP 08/13/18 08/13/18 15:50 15:50 Troponin I 0.03 B-Natriuretic Peptide 5161.8 H Troponin, BNP 08/13/18 08/13/18 15:50 15:50 Troponin I 0.03 B-Natriuretic Peptide 5161.8 H Laboratory Tests 08/13/18 08/13/18 08/14/18 15:50 15:50 05:00 WBC 7.7 Hgb 10.3 L Plt Count 145 Sodium Potassium Carbon Dioxide BUN Creatinine AST ALT Troponin I 0.03 B-Natriuretic Peptide 5161.8 H Albumin TSH 2.66 08/14/18 06:00 WBC Hgb Plt Count Sodium 136 Potassium 3.4 L Carbon Dioxide 29 BUN 16 Creatinine 0.7 AST 43 H ALT 29 Troponin I B-Natriuretic Peptide Albumin 1.9 L TSH Assessment/Plan Echo 06/25 (): nl LVEF. nl RV. severe MR (posterior jet). severe TR. RVSP 40- 50. CT chest: mod-large pleural effusions, no infiltrate. small peric effusion. ascites upper abdomen. partially imaged AAA endograft. 3.7 cm thoracic aorta. anasarca, acute on chronic HFpEF, severe MR/TR: -bilat pleural effusions, leg/scrotal swelling -BNP 5K (from 1900 in 06/25) -albumin low (1.9)--? 3rd spacing component -echo 06/25 (here with cellulitis then, no cardio consult in hospital) showed normal biventricular function with reportedly severe MR and TR. -IV lasix, start 40 iv bid -monitor K (mildly low--repleted in ER) -will need repeat echo once he is well diuresed, to reassess severity of valve regurgitation, as well as mechanism/valve morphology--to guide further treatment decisions (not a candidate for open heart surgery, could consider clip if indicated) CAD, subclinical: -cor calcifications on CT chest -warrants outpt f/u for discussion of sec prevention meds e.g. statin -cont aspirin from home regimen h/o AAA: -s/p repair 2018 ([facility]), stable in f/u there with vascular s/p fall, pain: -reportedly CT scans with no fractures -per hospitalist
[2018-08-14 15:03] LABS: ANISOCYTOSIS 2+; MACROCYTOSIS 0; OVALOCYTE 2+; PLATELET ESTIMATE DECREASED; ROULEAU 1+
--- NOTE | 2018-08-14 16:30 | PN ---
Physical Exam: SUBJECTIVE: Patient seen and examined at bedside this morning. Patient has no complaints. As per daughter, patient has multiple history of falls, and was found on the floor 3 days ago after an apparent fall. Patient refused to be brought to the hospital. Yesterday, patient continues to have difficulty ambulating accompanied by shortness of breath, and daughter brought him to the ED. Patient reports right-sided rib/back pain right scrotal pain but denies headache, dizziness, fever, chills, nausea, vomiting, chest pain, SOB, palpitations, abdominal pain, diarrhea, urinary symptoms. OBJECTIVE: Vital Signs Period Temp Pulse Resp BP Sys/Olguin Pulse Ox Last 24 Hr 97.8 F-97.8 F 72-80 18-19 115-117/61-64 95-99 GENERAL: The patient is awake, alert, and fully oriented, in no acute distress. HEAD: Normal with no signs of trauma. EYES:PERRLA, EOMI, sclera anicteric, conjunctiva clear. ENT: Ears normal, nares patent, oropharynx clear without exudates, moist mucous membranes. NECK:Soft, supple, trachea midline. LUNGS: Decreased breath sounds bilateral bases. HEART: Regular rate and rhythm, S1, S2 without murmur, rub or gallop. ABDOMEN: Soft, +RLQ tenderness, mildly distended, normoactive bowel sounds. EXTREMITIES: 2+ pulses, warm, well-perfused, +2 bilateral pitting edema NEUROLOGICAL: Cranial nerves II through XII grossly intact. Normal speech, gait not observed. PSYCH: Normal mood, normal affect. SKIN: Warm, dry, normal turgor, no rashes or lesions noted Laboratory Results - last 24 hr 08/13/18 08/13/18 08/13/18 15:50 15:50 15:50 WBC 9.2 RBC 3.08 L Hgb 10.6 L Hct 29.8 L MCV 96.5 H MCH 34.4 H MCHC 35.7 RDW 14.0 Plt Count 155 MPV 8.3 Absolute Neuts (auto) 8.6 H Neutrophils % 93.0 H Neutrophils % (Manual) 84.3 H Band Neutrophils % 12.7 Lymphocytes % 4.1 L Lymphocytes % (Manual) 1.0 L Monocytes % 2.8 L Monocytes % (Manual) 2 L Eosinophils % 0.1 D Eosinophils % (Manual) 0.0 Basophils % 0.0 Basophils % (Manual) 0.0 Myelocytes % (Man) 0 Promyelocytes % (Man) 0 Blast Cells % (Manual) 0 Nucleated RBC % 0 Metamyelocytes 0 Hypochromia Platelet Estimate Normal Polychromasia Poikilocytosis Anisocytosis Microcytosis Macrocytosis Ovalocytes Paulo Cells Rouleaux Sodium 133 L Potassium 3.2 L Chloride 100 Carbon Dioxide 27 Anion Gap 7 L BUN 17 Creatinine 0.7 Creat Clearance w eGFR > 60 POC Glucometer Random Glucose 48 L* Calcium 7.0 L Phosphorus 2.6 Magnesium 1.9 Total Bilirubin 0.7 AST 34 ALT 28 Alkaline Phosphatase 84 Creatine Kinase 266 Creatine Kinase Index 1.1 CK-MB (CK-2) 3.1 Troponin I 0.03 B-Natriuretic Peptide 5161.8 H Total Protein 4.9 L Albumin 1.9 L Vitamin B12 Serum Folate TSH 2.66 Urine Color Urine Appearance Urine pH Ur Specific Ren[place] Urine Protein Urine Glucose (UA) Urine Ketones Urine Blood Urine Nitrite Urine Bilirubin Urine Urobilinogen Ur Leukocyte Esterase Urine WBC (Auto) Urine RBC (Auto) Urine Bacteria Hyaline Casts Urine Mucus 08/13/18 08/13/18 08/14/18 18:10 22:50 05:00 WBC 7.7 RBC 2.99 L Hgb 10.3 L Hct 28.8 L MCV 96.6 H MCH 34.6 H MCHC 35.8 RDW 14.0 Plt Count 145 MPV 8.0 Absolute Neuts (auto) 7.0 Neutrophils % 91.5 H Neutrophils % (Manual) 84.9 H Band Neutrophils % 4.0 Lymphocytes % 4.5 L Lymphocytes % (Manual) 3.0 L D Monocytes % 3.9 Monocytes % (Manual) 7 D Eosinophils % 0.0 D Eosinophils % (Manual) 0.0 Basophils % 0.1 D Basophils % (Manual) 0.0 Myelocytes % (Man) 0 Promyelocytes % (Man) 0 Blast Cells % (Manual) 0 Nucleated RBC % 0 Metamyelocytes 0 Hypochromia 0 Platelet Estimate Decreased Polychromasia 2+ Poikilocytosis 0 Anisocytosis 2+ Microcytosis 0 Macrocytosis 0 Ovalocytes 2+ Paulo Cells 2+ Rouleaux 1+ Sodium Potassium Chloride Carbon Dioxide Anion Gap BUN Creatinine Creat Clearance w eGFR POC Glucometer [id number] Random Glucose Calcium Phosphorus Magnesium Total Bilirubin AST ALT Alkaline Phosphatase Creatine Kinase Creatine Kinase Index CK-MB (CK-2) Troponin I B-Natriuretic Peptide Total Protein Albumin Vitamin B12 Serum Folate TSH Urine Color Straw Urine Appearance Clear Urine pH 5.0 Ur Specific [place] 1.005 L Urine Protein Negative Urine Glucose (UA) Negative Urine Ketones Negative Urine Blood 1+ H Urine Nitrite Negative Urine Bilirubin Negative Urine Urobilinogen Negative Ur Leukocyte Esterase Negative Urine WBC (Auto) 1 Urine RBC (Auto) <1 Urine Bacteria Rare Hyaline Casts 6 Urine Mucus Rare 08/14/18 08/14/18 06:00 06:00 WBC RBC Hgb Hct MCV MCH MCHC RDW Plt Count MPV Absolute Neuts (auto) Neutrophils % Neutrophils % (Manual) Band Neutrophils % Lymphocytes % Lymphocytes % (Manual) Monocytes % Monocytes % (Manual) Eosinophils % Eosinophils % (Manual) Basophils % Basophils % (Manual) Myelocytes % (Man) Promyelocytes % (Man) Blast Cells % (Manual) Nucleated RBC % Metamyelocytes Hypochromia Platelet Estimate Polychromasia Poikilocytosis Anisocytosis Microcytosis Macrocytosis Ovalocytes Paulo Cells Rouleaux Sodium 136 Potassium 3.4 L Chloride 100 Carbon Dioxide 29 Anion Gap 6 L BUN 16 Creatinine 0.7 Creat Clearance w eGFR > 60 POC Glucometer Random Glucose 130 H Calcium 7.1 L Phosphorus 2.7 Magnesium 1.8 Total Bilirubin 0.8 AST 43 H ALT 29 Alkaline Phosphatase 83 Creatine Kinase Creatine Kinase Index CK-MB (CK-2) Troponin I B-Natriuretic Peptide Total Protein 4.8 L Albumin 1.9 L Vitamin B12 705 Serum Folate 16 TSH Urine Color Urine Appearance Urine pH Ur Specific [place] Urine Protein Urine Glucose (UA) Urine Ketones Urine Blood Urine Nitrite Urine Bilirubin Urine Urobilinogen Ur Leukocyte Esterase Urine WBC (Auto) Urine RBC (Auto) Urine Bacteria Hyaline Casts Urine Mucus Active Medications Generic Name Dose Route Start Last Admin Trade Name Freq PRN Reason Stop Dose Admin Acetaminophen 650 mg 08/14/18 00:31 Tylenol - PO Q4H PRN PAIN LEVEL 6-10 Aspirin 81 mg 08/14/18 10:00 08/14/18 10:00 Asa - PO 81 mg DAILY [facility] Administration Enoxaparin Sodium 40 mg 08/14/18 10:00 08/14/18 10:30 Lovenox - SQ 40 mg DAILY [facility] Administration Ferrous Sulfate 325 mg 08/14/18 08:00 08/14/18 08:00 Feosol - PO 325 mg DAILY@0800 [facility] Administration Furosemide 40 mg 08/14/18 06:00 08/14/18 14:00 Lasix Injection - IVPUSH 40 mg BID@0600,1400 [facility] Administration Potassium Chloride 20 meq 08/14/18 10:30 K-Dur - PO BID [facility] Tamsulosin HCl 0.4 mg 08/14/18 08:30 08/14/18 08:30 Flomax - PO 0.4 mg DAILY@0830 [facility] Administration ASSESSMENT/PLAN: Patient is an 88 year old male with past medical history of aortic aneurysm s/ p repair (03/2018), BPH, diastolic CHF, colon CA s/p resection, frequent falls, presented with difficulty ambulating and shortness of breath. #SOB, Anasarca likely 2/2 acute on chronic diastolic CHF vs Liver disease -CXR: mild CHF -Echo: LV size and function normal. EF 65-70%. RV systolic function normal. LA and RA size normal. Mild mitral valve thickening. Moderate MR. Mitral regurgitant jet is eccentric. Moderate to severe TR. Pulmonary artery systolic pressure is at least 45mmHg assuming RA presure of 3mmHg. Mild . Mild AR. No pericardial effusion. Large pleural effusion is present. -BNP 2161 (baseline 1976) -Abdominal and pelvic ultrasound ordered. -Cardiology (Dr. Gregorio) consulted. Recommendations appreciated. -IV Lasix 40 mg BID -Monitor K -- continue K-dur 20mg BID -Will need repeat echo once patient is well diuresed, to reassess severity of valve regurgitation, as well as mechanism/valve morphology--to guide further treatment (not a candidate for open heart surgery, could consider clip if indicated) #Frequent falls -Head CT, C-spine CT, T-spine CT, chest CT, pelvic CT: no evidence of fractures -Fall precautions -Physical therapy evaluation #Scrotal swelling -Scrotal US: no signs of acute traumatic injury. 1.6 cm simple appearing cyst in the right testicle. Trace right and small to moderate left hydrocele. Right varicocele. -Scrotal sling/support -Follow-up as outpatient #Anemia -H/H 10.3/28.8 -likely multifactorial -Continue home Feosol 325mg daily -Vit B12 and folate levels, retic count, iron studies #BPH -Continue home Tamsulosin 0.4mg daily #Hypoglycemia -Glu was 48 at the ED, patient was given D50 -Glu 130 today. -Will continue to monitor #FEN -Not on any standing fluids -Hypokalemia, on K-Dur 20 mg BID -Routine bmp monitoring -Sodium controlled diet #Prophylaxis -Lovenox 40mg sq daily #Disposition -Daughter is HCP. According to her, patient is DNR/DNI. -Will have both patient and daughter sign papers once patient is more awake and alert. -Daughter requesting patient be discharged to SNF (preferrably near [place], where she lives), as home child care provider only comes 3 times a week. Visit type - Emergency Visit Emergency Visit: Yes ED Registration Date: 08/13/18 Care time: The patient presented to the Emergency Department on the above date and was hospitalized for further evaluation of their emergent condition. - New Patient This patient is new to me today: Yes Date on this admission: 08/14/18 - Critical Care Critical Care patient: No
--- NOTE | 2018-08-14 17:06 | PN ---
Teaching Attending Note Name of Resident: Trish Lynn ATTENDING PHYSICIAN STATEMENT I saw and evaluated the patient. I reviewed the resident's note and discussed the case with the resident. I agree with the resident's findings and plan as documented. SUBJECTIVE: Patient is a 88yo male presented with shortness of breath. OBJECTIVE: Vital Signs Temperature 97.9 F 08/14/18 16:25 Pulse Rate 68 08/14/18 16:25 Respiratory Rate 18 08/14/18 16:25 Blood Pressure 110/70 08/14/18 16:25 O2 Sat by Pulse Oximetry (%) 99 08/14/18 16:25 GENERAL: The patient is awake, alert, oriented, , very cachectic . HEAD: Normal with no signs of trauma. EYES:PERRLA, EOMI, sclera anicteric, conjunctiva clear. ENT: Ears normal, oropharynx clear without exudates, moist mucous membranes. NECK:Soft, supple, trachea midline. LUNGS: Decreased breath sounds bilateral at bases. HEART: Regular rate and rhythm, S1, S2 without murmur, rub or gallop. ABDOMEN: Soft, +RLQ tenderness, mildly distended, normoactive bowel sounds. EXTREMITIES: 2+ pulses, warm, well-perfused, +2 bilateral pitting edema NEUROLOGICAL: Cranial nerves II through XII grossly intact. Normal speech, gait not observed. PSYCH: Normal mood, normal affect. SKIN: Warm, dry, normal turgor, no rashes or lesions noted CBCD WBC 7.7 K/mm3 (4.0-10.0) 08/14/18 05:00 RBC 2.99 M/mm3 (4.00-5.60) L 08/14/18 05:00 Hgb 10.3 GM/dL (11.7-16.9) L 08/14/18 05:00 Hct 28.8 % (35.4-49) L 08/14/18 05:00 MCV 96.6 fl (80-96) H 08/14/18 05:00 MCHC 35.8 g/dl (32.0-35.9) 08/14/18 05:00 RDW 14.0 % (11.9-15.9) 08/14/18 05:00 Plt Count 145 K/MM3 (134-434) 08/14/18 05:00 MPV 8.0 fl (7.5-11.1) 08/14/18 05:00 CMP Sodium 136 mmol/L (136-145) 08/14/18 06:00 Potassium 3.4 mmol/L (3.5-5.1) L 08/14/18 06:00 Chloride 100 mmol/L (98-107) 08/14/18 06:00 Carbon Dioxide 29 mmol/L (21-32) 08/14/18 06:00 Anion Gap 6 MMOL/L (8-16) L 08/14/18 06:00 BUN 16 mg/dL (7-18) 08/14/18 06:00 Creatinine 0.7 mg/dL (0.55-1.3) 08/14/18 06:00 Creat Clearance w eGFR > 60 (>60) 08/14/18 06:00 Random Glucose 130 mg/dL (74-106) H 08/14/18 06:00 Calcium 7.1 mg/dL (8.5-10.1) L 08/14/18 06:00 Total Bilirubin 0.8 mg/dL (0.2-1) 08/14/18 06:00 AST 43 U/L (15-37) H 08/14/18 06:00 ALT 29 U/L (13-61) 08/14/18 06:00 Alkaline Phosphatase 83 U/L (45-117) 08/14/18 06:00 Total Protein 4.8 g/dl (6.4-8.2) L 08/14/18 06:00 Albumin 1.9 g/dl (3.4-5.0) L 08/14/18 06:00 CARDIAC ENZYMES Creatine Kinase 266 IU/L (26-308) 08/13/18 15:50 Troponin I 0.03 ng/ml (0.00-0.05) 08/13/18 15:50 Current Medications Generic Name Dose Route Start Last Admin Trade Name Freq PRN Reason Stop Dose Admin Acetaminophen 650 mg 08/14/18 00:31 Tylenol - PO Q4H PRN PAIN LEVEL 6-10 Aspirin 81 mg 08/14/18 10:00 08/14/18 10:00 Asa - PO 81 mg DAILY [facility] Administration Enoxaparin Sodium 40 mg 08/14/18 10:00 08/14/18 10:30 Lovenox - SQ 40 mg DAILY [facility] Administration Ferrous Sulfate 325 mg 08/14/18 08:00 08/14/18 08:00 Feosol - PO 325 mg DAILY@0800 [facility] Administration Furosemide 40 mg 08/14/18 06:00 08/14/18 14:00 Lasix Injection - IVPUSH 40 mg BID@0600,1400 [facility] Administration Potassium Chloride 20 meq 08/14/18 10:30 K-Dur - PO BID [facility] Tamsulosin HCl 0.4 mg 08/14/18 08:30 08/14/18 08:30 Flomax - PO 0.4 mg DAILY@0830 [facility] Administration Home Medications Medication Instructions Recorded Aspirin [ASA -] 81 mg PO DAILY 06/27/18 Loperamide HCl [Imodium -] 2 mg PO DAILY 06/27/18 Tamsulosin HCl 0.4 mg PO DAILY 06/27/18 Zolpidem Tartrate [Ambien] 5 mg PO HS 06/27/18 Furosemide [Lasix] 20 mg PO ASDIR 08/13/18 Ferrous Sulfate 325 mg PO QID 08/14/18 Echo 06/25 (): nl LVEF. nl RV. severe MR (posterior jet). severe TR. RVSP 40- 50. CT chest: mod-large pleural effusions, no infiltrate. small peric effusion. ascites upper abdomen. partially imaged AAA endograft. 3.7 cm thoracic aorta. ASSESSMENT AND PLAN: Patient is an 88yo male with past medical history of aortic aneurysm s/p repair (03/2018), BPH, diastolic CHF, colon CA s/p resection, frequent falls, presented with difficulty ambulating and shortness of breath. # Acute on chronic diastolic CHF with HFpEF: IV Lasix 40 mg BID, Cardiology ( Dr. Gregorio) consulted. BNP 2161 (baseline 1976) # acute SOB with Anasarca with severe MR/TR, bilat pleural effusions, leg/ scrotal swelling # Hx of falls ,Fall precautions: No fractures. -Head CT, C-spine CT, T-spine CT, chest CT, pelvic CT: no evidence of fractures , Physical therapy evaluation #Scrotal swelling: Scrotal US: no signs of acute traumatic injury. 1.6 cm simple appearing cyst in the right testicle. Trace right and small to moderate left hydrocele. Right varicocele. # Hx of AAA: s/p repair 2018 ([facility]), stable in f/u there with vascular #Anemia stable on home Feosol 325mg daily, check Vit B12 and folate levels, retic count, iron studies #BPH Continue home Tamsulosin 0.4mg daily #Hypoglycemia :Glu was 48 at the ED, patient was given D50, monitor DVT Prophylaxis:Lovenox 40mg sq daily
[2018-08-14] MEDS: POTASSIUM CHLORIDE TABS 20 MEQ TABLET.ER (FP) PO SCH (22:04)
[2018-08-15] MEDS: FUROSEMIDE 40 MG/4 ML INJECTABLE VIAL IVPUSH SCH ×2 (06:07→14:36)
[2018-08-15 06:57] LABS: HEMOGLOBIN 8.9 GM/dL (11.7-16.9); LYMPH % 7.4 % (8-40); MCH 32.2 pg (25.7-33.7); MCHC 33.1 g/dl (32.0-35.9); MEAN CELL VOLUME 97.3 fl (80-96); MONO % 3.4 % (3.8-10.2); NEUT % 89.2 % (42.8-82.8); PLATELET COUNT 124 K/MM3 (134-434); RBC 2.77 M/mm3 (4.00-5.60); RDW 13.9 % (11.9-15.9)
[2018-08-15 07:25] LABS: ANION GAP 4 MMOL/L (8-16); BLOOD UREA NITROGEN 15 mg/dL (7-18); CHLORIDE 99 mmol/L (98-107); CO2 32 mmol/L (21-32); CREATININE 0.6 mg/dL (0.55-1.3); GLUCOSE,RANDOM 118 mg/dL (74-106); POTASSIUM 3.2 mmol/L (3.5-5.1); SODIUM 135 mmol/L (136-145)
[2018-08-15] MEDS ORDERED: POTASSIUM CHLORIDE TABS 20 MEQ TABLET.ER (FP) PO ONE (09:02)
[2018-08-15] MEDS ORDERED: NAPH,MB-DB/K PH,MBDB POWDER PACKET PO ONE (09:05)
[2018-08-15] MEDS: POTASSIUM CHLORIDE TABS 20 MEQ TABLET.ER (FP) PO SCH ×2 (09:52→21:36)
[2018-08-15] MEDS: FERROUS SO4 325 MG TABLET (FP) PO SCH (09:52)
[2018-08-15] MEDS: TAMSULOSIN HCL 0.4 MG CAP PO SCH (09:52)
[2018-08-15] MEDS: ASPIRIN 81 MG CHEWABLE TABLETS PO SCH (09:53)
[2018-08-15] MEDS: ENOXAPARIN NA (PORCINE) 40 MG/0.4 ML DISP.SYRIN SQ SCH (09:53)
--- NOTE | 2018-08-15 11:18 | PN ---
Progress Note (short form) - Note Progress Note: Chief Complaint: s/p fall, pain History of Present Illness: sob, edema improving. no chest pain, palps, dizziness, lightheadedness Current Medications Acetaminophen (Tylenol -) 650 mg PO Q4H PRN PRN Reason: PAIN LEVEL 6-10 Aspirin (Asa -) 81 mg PO DAILY [facility] Last Admin: 08/15/18 09:53 Dose: 81 mg Enoxaparin Sodium (Lovenox -) 40 mg SQ DAILY [facility] Last Admin: 08/15/18 09:53 Dose: 40 mg Ferrous Sulfate (Feosol -) 325 mg PO DAILY@0800 [facility] Last Admin: 08/15/18 09:52 Dose: 325 mg Furosemide (Lasix Injection -) 40 mg IVPUSH BID@0600,1400 [facility] Last Admin: 08/15/18 06:07 Dose: 40 mg Potassium Chloride (K-Dur -) 20 meq PO BID [facility] Last Admin: 08/15/18 09:52 Dose: 20 meq Ranitidine HCl (Zantac -) 150 mg PO BID [facility] Tamsulosin HCl (Flomax -) 0.4 mg PO DAILY@0830 [facility] Last Admin: 08/15/18 09:52 Dose: 0.4 mg Vital Signs: Vital Signs Period Temp Pulse Resp BP Sys/Olguin Pulse Ox Last 24 Hr 97.6 F-98.5 F 68-80 15-20 106-131/58-77 98-99 Constitutional: Yes: Well Nourished, No Distress Eyes: No: Sclera Icterus HENT: No: Nasal Congestion Neck: No: Decreased ROM Respiratory: Yes: Diminished (bases). No: Accessory Muscle Use, Wheezes Gastrointestinal: Yes: Normal Bowel Sounds. No: Distention, Hepatomegaly, Palpable Mass, Tenderness Cardiovascular: Yes: Regular Rate and Rhythm JVD: Yes Carotid Bruit: No PMI: Non-Displaced Heart Sounds: Yes: S1, S2. No: Gallop Murmur: No: Systolic Murmur, Diastolic Murmur Musculoskeletal: Yes: Other (No kyphosis) Extremities: No: Cool, Cyanosis Edema: Yes (1+ pretib) Peripheral Pulses: 2+ Left Carotid, 2+ Right Carotid, 2+ Left Doralis Pedis, 2+ Right Dorsalis Pedis Integumentary: No: Jaundice Neurological: Yes: Alert. No: Seizure Psychiatric: No: Agitated Assessment/Plan Echo 06/25 (): nl LVEF. nl RV. severe MR (posterior jet). severe TR. RVSP 40- 50. echo 08/2018 LV nl size/function, RV nl, mod MR with eecentric jet, mod to severe TR, PASP at least 45 mmHg, mild AR, lg pleural effusion present CT chest: mod-large pleural effusions, no infiltrate. small peric effusion. ascites upper abdomen. partially imaged AAA endograft. 3.7 cm thoracic aorta. anasarca, acute on chronic HFpEF, severe MR/TR: -bilat pleural effusions, leg/scrotal swelling -BNP 5K (from 1900 in 06/25) -albumin low (1.9)--? 3rd spacing component -echo 06/25 (here with cellulitis then, no cardio consult in hospital) showed normal biventricular function with reportedly severe MR and TR. - 08/14 on lasix 40 mg IV BID - 08/15 weight up 106->111 lbs, d/w nurse yesterday's weight may be erronenous. sob/edema improving, Cr stable - will continue lasix 40 mg IV BID today -monitor K, replete as needed -will need repeat echo once he is well diuresed, to reassess severity of valve regurgitation, as well as mechanism/valve morphology--to guide further treatment decisions (not a candidate for open heart surgery, could consider clip if indicated) - echo 08/14 shows mod MR with eccentric jet CAD, subclinical: -cor calcifications on CT chest -warrants outpt f/u for discussion of sec prevention meds e.g. statin -cont aspirin from home regimen h/o AAA: -s/p repair 2018 ([facility]), stable in f/u there with vascular s/p fall, pain: -reportedly CT scans with no fractures -per hospitalist
[2018-08-15] MEDS: RANITIDINE HCL 150 MG TABLET (FP) PO SCH ×2 (11:23→21:36)
--- NOTE | 2018-08-15 16:05 | PN ---
Physical Exam: SUBJECTIVE: Patient seen and examined at bedside this morning. No acute events overnight. Patient reports of abdominal pain today, after he had the ultrasound done. Patient was given Tylenol and Ranitidine. Reports improvement of pain. OBJECTIVE: Vital Signs Temperature 99.1 F 08/15/18 14:05 Pulse Rate 78 08/15/18 14:05 Respiratory Rate 18 08/15/18 14:05 Blood Pressure 100/56 L 08/15/18 14:05 O2 Sat by Pulse Oximetry (%) 98 08/15/18 09:00 GENERAL: The patient is awake, alert, and fully oriented, in no acute distress. HEAD: Normal with no signs of trauma. EYES:PERRLA, EOMI, sclera anicteric, conjunctiva clear. ENT: Ears normal, nares patent, oropharynx clear without exudates, moist mucous membranes. NECK:Soft, supple, trachea midline. LUNGS: Decreased breath sounds bilateral bases. HEART: Regular rate and rhythm, S1, S2 without murmur, rub or gallop. ABDOMEN: Soft, +RLQ tenderness, mildly distended, normoactive bowel sounds. EXTREMITIES: 2+ pulses, warm, well-perfused, +2 bilateral pitting edema NEUROLOGICAL: Cranial nerves II through XII grossly intact. Normal speech, gait not observed. PSYCH: Normal mood, normal affect. SKIN: Warm, dry, normal turgor, no rashes or lesions noted Laboratory Results - last 24 hr 08/15/18 08/15/18 08/15/18 05:30 05:30 06:00 WBC 7.0 RBC 2.77 L Hgb 8.9 L Hct 27.0 L MCV 97.3 H MCH 32.2 MCHC 33.1 RDW 13.9 Plt Count 124 L MPV 8.0 Absolute Neuts (auto) 6.2 Neutrophils % 89.2 H Lymphocytes % 7.4 L D Monocytes % 3.4 L Eosinophils % 0.0 Basophils % 0.0 Nucleated RBC % 0 Retic Count 1.08 Sodium 135 L Potassium 3.2 L Chloride 99 Carbon Dioxide 32 Anion Gap 4 L BUN 15 Creatinine 0.6 Creat Clearance w eGFR > 60 Random Glucose 118 H Calcium 7.0 L Phosphorus 2.0 L Magnesium 2.0 Active Medications Generic Name Dose Route Start Last Admin Trade Name Freq PRN Reason Stop Dose Admin Acetaminophen 650 mg 08/14/18 00:31 08/15/18 13:01 Tylenol - PO 650 mg Q4H PRN Administration PAIN LEVEL 6-10 Aspirin 81 mg 08/14/18 10:00 08/15/18 09:53 Asa - PO 81 mg DAILY [facility] Administration Enoxaparin Sodium 40 mg 08/14/18 10:00 08/15/18 09:53 Lovenox - SQ 40 mg DAILY [facility] Administration Ferrous Sulfate 325 mg 08/14/18 08:00 08/15/18 09:52 Feosol - PO 325 mg DAILY@0800 [facility] Administration Furosemide 40 mg 08/14/18 06:00 08/15/18 14:36 Lasix Injection - IVPUSH 40 mg BID@0600,1400 [facility] Administration Potassium Chloride 20 meq 08/14/18 10:30 08/15/18 09:52 K-Dur - PO 20 meq BID [facility] Administration Ranitidine HCl 150 mg 08/15/18 11:15 08/15/18 11:23 Zantac - PO 150 mg BID [facility] Administration Tamsulosin HCl 0.4 mg 08/14/18 08:30 08/15/18 09:52 Flomax - PO 0.4 mg DAILY@0830 [facility] Administration ASSESSMENT/PLAN: Patient is an 88 year old male with past medical history of aortic aneurysm s/ p repair (03/2018), BPH, diastolic CHF, colon CA s/p resection, frequent falls, presented with difficulty ambulating and shortness of breath. #SOB, Anasarca likely 2/2 acute on chronic diastolic CHF vs Liver disease -CXR: mild CHF -Echo: LV size and function normal. EF 65-70%. RV systolic function normal. LA and RA size normal. Mild mitral valve thickening. Moderate MR. Mitral regurgitant jet is eccentric. Moderate to severe TR. Pulmonary artery systolic pressure is at least 45mmHg assuming RA presure of 3mmHg. Mild . Mild AR. No pericardial effusion. Large pleural effusion is present. -BNP 2161 (baseline 1976) -Abdominal and pelvic ultrasound: Small liver with increased echotexture. Rule out liver cirrhosis. Normal size spleen. At least a small amount of ascites in the right and left upper quadrant. Bilateral pleural effusion. Adequately distended gallbladder without gross intraluminal stones. However, there is suggestion of mild irregular thickening of its wall. Dilated common bile duct measuring 1.2 cm in AP dimension for which further evaluation is needed. Adequately distended urinary bladder without gross wall thickening. 88cc of postvoid urine residue is present. Bilateral ureteral jets were not visualized. Prostate gland was not visualized/evaluated. -Cardiology (Dr. Gregorio) consulted. Recommendations appreciated. -Continue IV Lasix 40 mg BID -Monitor K -- continue K-dur 20mg BID -Will need repeat echo once patient is well diuresed, to reassess severity of valve regurgitation, as well as mechanism/valve morphology--to guide further treatment (not a candidate for open heart surgery, could consider clip if indicated) #Frequent falls -Head CT, C-spine CT, T-spine CT, chest CT, pelvic CT: no evidence of fractures -Fall precautions -Physical therapy evaluation #Scrotal swelling -Scrotal US: no signs of acute traumatic injury. 1.6 cm simple appearing cyst in the right testicle. Trace right and small to moderate left hydrocele. Right varicocele. -Scrotal sling/support -Follow-up as outpatient #Anemia -H/H 8.9 -likely multifactorial -Continue home Feosol 325mg daily -Vit B12 and folate levels, retic count, iron studies #BPH -Continue home Tamsulosin 0.4mg daily #Hypoglycemia -Glu was 48 at the ED, patient was given D50 -Glu 118 today. -Will continue to monitor #FEN -Not on any standing fluids -Hypokalemia, on K-Dur 20 mg BID -Routine bmp monitoring -Sodium controlled diet #Prophylaxis -Lovenox 40mg sq daily #Disposition -Daughter is HCP. According to her, patient is DNR/DNI. -Will have both patient and daughter sign papers once patient is more awake and alert. -Daughter requesting patient be discharged to SNF (preferrably near [place], where she lives). [facility] in the case. Visit type - Emergency Visit Emergency Visit: Yes ED Registration Date: 08/13/18 Care time: The patient presented to the Emergency Department on the above date and was hospitalized for further evaluation of their emergent condition. - New Patient This patient is new to me today: No - Critical Care Critical Care patient: No
[2018-08-15] MEDS ORDERED: SODIUM CHLORIDE 250 ML IV STA (18:29)
--- NOTE | 2018-08-15 19:59 | PN ---
Teaching Attending Note Name of Resident: Trish Lynn ATTENDING PHYSICIAN STATEMENT I saw and evaluated the patient. I reviewed the resident's note and discussed the case with the resident. I agree with the resident's findings and plan as documented. SUBJECTIVE: Patient is comfortable with no acute distress, feels better. OBJECTIVE: Vital Signs Temperature 99.1 F 08/15/18 14:05 Pulse Rate 78 08/15/18 14:05 Respiratory Rate 18 08/15/18 14:05 Blood Pressure 100/56 L 08/15/18 14:05 O2 Sat by Pulse Oximetry (%) 98 08/15/18 09:00 GENERAL: The patient is awake, alert, oriented, , very cachectic . HEAD: Normal with no signs of trauma. EYES:PERRLA, EOMI, sclera anicteric, conjunctiva clear. ENT: Ears normal, oropharynx clear without exudates, moist mucous membranes. NECK:Soft, supple, trachea midline. LUNGS: Decreased breath sounds bilateral at bases. HEART: Regular rate and rhythm, S1, S2 without murmur, rub or gallop. ABDOMEN: Soft, +RLQ tenderness, mildly distended, normoactive bowel sounds. EXTREMITIES: 2+ pulses, warm, well-perfused, +2 bilateral pitting edema NEUROLOGICAL: Cranial nerves II through XII grossly intact. Normal speech, gait not observed. PSYCH: Normal mood, normal affect. SKIN: Warm, dry, normal turgor, no rashes or lesions noted CBCD WBC 7.0 K/mm3 (4.0-10.0) 08/15/18 05:30 RBC 2.77 M/mm3 (4.00-5.60) L 08/15/18 05:30 Hgb 8.9 GM/dL (11.7-16.9) L 08/15/18 05:30 Hct 27.0 % (35.4-49) L 08/15/18 05:30 MCV 97.3 fl (80-96) H 08/15/18 05:30 MCHC 33.1 g/dl (32.0-35.9) 08/15/18 05:30 RDW 13.9 % (11.9-15.9) 08/15/18 05:30 Plt Count 124 K/MM3 (134-434) L 08/15/18 05:30 MPV 8.0 fl (7.5-11.1) 08/15/18 05:30 CMP Sodium 135 mmol/L (136-145) L 08/15/18 06:00 Potassium 3.2 mmol/L (3.5-5.1) L 08/15/18 06:00 Chloride 99 mmol/L (98-107) 08/15/18 06:00 Carbon Dioxide 32 mmol/L (21-32) 08/15/18 06:00 Anion Gap 4 MMOL/L (8-16) L 08/15/18 06:00 BUN 15 mg/dL (7-18) 08/15/18 06:00 Creatinine 0.6 mg/dL (0.55-1.3) 08/15/18 06:00 Creat Clearance w eGFR > 60 (>60) 08/15/18 06:00 Random Glucose 118 mg/dL (74-106) H 08/15/18 06:00 Calcium 7.0 mg/dL (8.5-10.1) L 08/15/18 06:00 Total Bilirubin 0.8 mg/dL (0.2-1) 08/14/18 06:00 AST 43 U/L (15-37) H 08/14/18 06:00 ALT 29 U/L (13-61) 08/14/18 06:00 Alkaline Phosphatase 83 U/L (45-117) 08/14/18 06:00 Total Protein 4.8 g/dl (6.4-8.2) L 08/14/18 06:00 Albumin 1.9 g/dl (3.4-5.0) L 08/14/18 06:00 CARDIAC ENZYMES Creatine Kinase 266 IU/L (26-308) 08/13/18 15:50 Troponin I 0.03 ng/ml (0.00-0.05) 08/13/18 15:50 Current Medications Generic Name Dose Route Start Last Admin Trade Name Freq PRN Reason Stop Dose Admin Acetaminophen 650 mg 08/14/18 00:31 08/15/18 13:01 Tylenol - PO 650 mg Q4H PRN Administration PAIN LEVEL 6-10 Aspirin 81 mg 08/14/18 10:00 08/15/18 09:53 Asa - PO 81 mg DAILY AVERY Administration Enoxaparin Sodium 40 mg 08/14/18 10:00 08/15/18 09:53 Lovenox - SQ 40 mg DAILY AVERY Administration Ferrous Sulfate 325 mg 08/14/18 08:00 08/15/18 09:52 Feosol - PO 325 mg DAILY@0800 [facility]ERY Administration Furosemide 40 mg 08/14/18 06:00 08/15/18 14:36 Lasix Injection - IVPUSH 40 mg BID@0600,1400 [facility]ERY Administration Potassium Chloride 20 meq 08/14/18 10:30 08/15/18 09:52 K-Dur - PO 20 meq BID [facility]ERY Administration Ranitidine HCl 150 mg 08/15/18 11:15 08/15/18 11:23 Zantac - PO 150 mg BID [facility]ERY Administration Tamsulosin HCl 0.4 mg 08/14/18 08:30 08/15/18 09:52 Flomax - PO 0.4 mg DAILY@0830 AVERY Administration Home Medications Medication Instructions Recorded Aspirin [ASA -] 81 mg PO DAILY 06/27/18 Loperamide HCl [Imodium -] 2 mg PO DAILY 06/27/18 RX: Tamsulosin HCl 0.4 mg PO DAILY 06/27/18 Zolpidem Tartrate [Ambien] 5 mg PO HS 06/27/18 Furosemide [Lasix] 20 mg PO ASDIR 08/13/18 RX: Ferrous Sulfate 325 mg PO QID 08/14/18 Intake & Output 08/12/18 08/13/18 08/14/18 08/15/18 23:59 23:59 23:59 23:59 Intake Total 120 220 Output Total 200 810 Balance -80 -590 Weight 48.081 kg 48.081 kg 50.349 kg Echo 06/25 (): nl LVEF. nl RV. severe MR (posterior jet). severe TR. RVSP 40- 50. CT chest: mod-large pleural effusions, no infiltrate. small peric effusion. ascites upper abdomen. partially imaged AAA endograft. 3.7 cm thoracic aorta. ASSESSMENT AND PLAN: Patient is an 88yo male with past medical history of aortic aneurysm s/p repair (03/2018), BPH, diastolic CHF, colon CA s/p resection, frequent falls, presented with difficulty ambulating and shortness of breath. # Acute on chronic diastolic CHF with HFpEF: IV Lasix 40 mg BID will reduce the dose to 20mg iv bid since bp is running in a low side. Cardiology (Dr. Gregorio ) consulted. BNP 2161 (baseline 1976), will continue to monitor. Is and o's # acute SOB with Anasarca with severe MR/TR, bilat pleural effusions, leg/ scrotal swelling # Hx of falls ,Fall precautions: No fractures. -Head CT, C-spine CT, T-spine CT, chest CT, pelvic CT: no evidence of fractures , Physical therapy evaluation #Scrotal swelling: Scrotal US: no signs of acute traumatic injury. 1.6 cm simple appearing cyst in the right testicle. Trace right and small to moderate left hydrocele. Right varicocele. # Hx of AAA: s/p repair 2018 ([facility]), stable in f/u there with vascular #Anemia stable on home Feosol 325mg daily, check Vit B12 and folate levels, retic count, iron studies #BPH Continue home Tamsulosin 0.4mg daily #Hypoglycemia :Glu was 48 in ED, patient was given D50, monitor DVT Prophylaxis:Lovenox 40mg sq daily
[2018-08-15] MEDS ORDERED: FUROSEMIDE 40 MG/4 ML INJECTABLE VIAL IVPUSH SCH (20:35)
[2018-08-16 07:43] LABS: HEMATOCRIT 27.6 % (35.4-49); HEMOGLOBIN 9.1 GM/dL (11.7-16.9); LYMPH % 7.9 % (8-40); MCH 32.1 pg (25.7-33.7); MCHC 33.1 g/dl (32.0-35.9); MEAN CELL VOLUME 97.1 fl (80-96); MEAN PLT VOLUME 8.3 fl (7.5-11.1); MONO % 1.2 % (3.8-10.2); NEUT % 90.9 % (42.8-82.8); PLATELET COUNT 114 K/MM3 (134-434); RBC 2.85 M/mm3 (4.00-5.60); RDW 13.9 % (11.9-15.9); WHITE BLOOD COUNT 5.7 K/mm3 (4.0-10.0)
[2018-08-16 08:06] LABS: SERUM IRON SATURATION 14 % (15-55); TOTAL IRON BINDING CAPACITY 97 ug/dL (250-450); UIBC 83 ug/dL (111-343)
[2018-08-16 08:20] LABS: ALBUMIN 1.6 g/dl (3.4-5.0); ALK PHOS 70 U/L (45-117); ANION GAP 7 MMOL/L (8-16); BILIRUBIN,TOTAL 0.8 mg/dL (0.2-1); BLOOD UREA NITROGEN 15 mg/dL (7-18); CHLORIDE 99 mmol/L (98-107); CO2 32 mmol/L (21-32); CREATININE 0.6 mg/dL (0.55-1.3); GLUCOSE,RANDOM 76 mg/dL (74-106); MAGNESIUM 1.7 mg/dL (1.8-2.4); PHOSPHOROUS 2.4 mg/dL (2.5-4.9); SGOT/AST 25 U/L (15-37); SGPT/ALT 25 U/L (13-61); SODIUM 138 mmol/L (136-145); TOT PROT 4.3 g/dl (6.4-8.2)
[2018-08-16 08:35] LABS: CALCIUM 6.6 mg/dL (8.5-10.1); POTASSIUM 2.8 mmol/L (3.5-5.1)
[2018-08-16] MEDS ORDERED: POTASSIUM CHLORIDE TABS 20 MEQ TABLET.ER (FP) PO ONE (08:50)
[2018-08-16] MEDS ORDERED: NAPH,MB-DB/K PH,MBDB POWDER PACKET PO ONE (08:52)
[2018-08-16] MEDS ORDERED: MAGNESIUM OXIDE 400 MG TABLET (FP) PO ONE (08:53)
--- NOTE | 2018-08-16 10:03 | PN ---
Progress Note (short form) - Note Progress Note: Chief Complaint: s/p fall, pain History of Present Illness: improving sob and edema. no chest pain, palps, dizziness, lightheadedness Current Medications Acetaminophen (Tylenol -) 650 mg PO Q4H PRN PRN Reason: PAIN LEVEL 6-10 Last Admin: 08/15/18 13:01 Dose: 650 mg Aspirin (Asa -) 81 mg PO DAILY [facility] Last Admin: 08/15/18 09:53 Dose: 81 mg Enoxaparin Sodium (Lovenox -) 40 mg SQ DAILY [facility] Last Admin: 08/15/18 09:53 Dose: 40 mg Ferrous Sulfate (Feosol -) 325 mg PO DAILY@0800 [facility] Last Admin: 08/15/18 09:52 Dose: 325 mg Furosemide (Lasix Injection -) 20 mg IVPUSH BID@0600,1400 [facility] Last Admin: 08/16/18 06:27 Dose: Not Given Potassium Chloride (K-Dur -) 20 meq PO BID [facility] Last Admin: 08/15/18 21:36 Dose: 20 meq Ranitidine HCl (Zantac -) 150 mg PO BID [facility] Last Admin: 08/15/18 21:36 Dose: 150 mg Tamsulosin HCl (Flomax -) 0.4 mg PO DAILY@0830 [facility] Last Admin: 08/15/18 09:52 Dose: 0.4 mg Vital Signs: Vital Signs Period Temp Pulse Resp BP Sys/Olguin Pulse Ox Last 24 Hr 97.3 F-100 F 70-88 16-20 84-120/46-68 96 Constitutional: Yes: Well Nourished, No Distress Eyes: No: Sclera Icterus HENT: No: Nasal Congestion Neck: No: Decreased ROM Respiratory: Yes: Diminished at bases, poor effort. No: Accessory Muscle Use, Wheezes Gastrointestinal: Yes: Normal Bowel Sounds. No: Distention, Hepatomegaly, Palpable Mass, Tenderness Cardiovascular: Yes: Regular Rate and Rhythm JVD: Yes Carotid Bruit: No PMI: Non-Displaced Heart Sounds: Yes: S1, S2. No: Gallop Murmur: No: Systolic Murmur, Diastolic Murmur Musculoskeletal: Yes: Other (No kyphosis) Extremities: No: Cool, Cyanosis Edema: yes: trace pretib bilaterally Peripheral Pulses: 2+ Left Carotid, 2+ Right Carotid, 2+ Left Doralis Pedis, 2+ Right Dorsalis Pedis Integumentary: No: Jaundice Neurological: Yes: Alert. No: Seizure Psychiatric: No: Agitated Assessment/Plan Echo 06/25 ([facility]): nl LVEF. nl RV. severe MR (posterior jet). severe TR. RVSP 40- 50. echo 08/2018 LV nl size/function, RV nl, mod MR with eecentric jet, mod to severe TR, PASP at least 45 mmHg, mild AR, lg pleural effusion present CT chest: mod-large pleural effusions, no infiltrate. small peric effusion. ascites upper abdomen. partially imaged AAA endograft. 3.7 cm thoracic aorta. tele: sinus, PVCs anasarca, acute on chronic HFpEF, severe MR/TR: -bilat pleural effusions, leg/scrotal swelling -BNP 5K (from 1900 in 06/25) -albumin low (1.9)--? 3rd spacing component -echo 06/25 (here with cellulitis then, no cardio consult in hospital) showed normal biventricular function with reportedly severe MR and TR. - 08/14 on lasix 40 mg IV BID - 08/15 weight up 106->111 lbs, d/w nurse yesterday's weight may be erronenous. sob/edema improving, Cr stable - will continue lasix 40 mg IV BID today -monitor K, replete as needed - 08/16 lasix decreased to 20 mg IV BID by primary team for low BPs, weight down, Cr stable - weight at home 106 lbs, this morning 107. edema and sob improved. dc iv lasix, start lasix 20 mg po daily -will need repeat echo once he is well diuresed, to reassess severity of valve regurgitation, as well as mechanism/valve morphology--to guide further treatment decisions (not a candidate for open heart surgery, could consider clip if indicated) - echo 08/14 shows mod MR with eccentric jet. CAD, subclinical: -cor calcifications on CT chest -warrants outpt f/u for discussion of sec prevention meds e.g. statin -cont aspirin from home regimen h/o AAA: -s/p repair 2018 ([facility]), stable in f/u there with vascular s/p fall, pain: -reportedly CT scans with no fractures -per hospitalist
[2018-08-16] MEDS: ASPIRIN 81 MG CHEWABLE TABLETS PO SCH (10:21)
[2018-08-16] MEDS: TAMSULOSIN HCL 0.4 MG CAP PO SCH (10:21)
[2018-08-16] MEDS: POTASSIUM CHLORIDE TABS 20 MEQ TABLET.ER (FP) PO SCH ×2 (10:22→22:39)
[2018-08-16] MEDS: FERROUS SO4 325 MG TABLET (FP) PO SCH (10:22)
[2018-08-16] MEDS: ENOXAPARIN NA (PORCINE) 40 MG/0.4 ML DISP.SYRIN SQ SCH (10:22)
[2018-08-16] MEDS: RANITIDINE HCL 150 MG TABLET (FP) PO SCH ×2 (10:22→22:38)
--- NOTE | 2018-08-16 13:06 | EKG ---
Test Reason : Blood Pressure : / mmHG Vent. Rate : 080 BPM Atrial Rate : 080 BPM P-R Int : 122 ms QRS Dur : 090 ms QT Int : 346 ms P-R-T Axes : 012 020 032 degrees QTc Int : 399 ms UNDETERMINED RHYTHM NONSPECIFIC T WAVE ABNORMALITY ABNORMAL ECG WHEN COMPARED WITH ECG OF 13-AUG-2018 16:38, CURRENT UNDETERMINED RHYTHM PRECLUDES RHYTHM COMPARISON, NEEDS REVIEW Confirmed by ELICIA RUSHING, ELIZABETH ([id number]) on 08/16/2018 1:06:17 PM [facility] Confirmed By:ELIZABETH RUBI MD
[2018-08-16] MEDS: FUROSEMIDE 20 MG TABLET (FP) PO SCH (13:24)
--- NOTE | 2018-08-16 18:00 | PN ---
Physical Exam: SUBJECTIVE: Patient seen and examined at bedside this morning. Patient has been stable overnight, maintaining BP at 90s/50s. Patient's daughter reported this is patient's baseline BP. Patient has no complaints. OBJECTIVE: Vital Signs Period Temp Pulse Resp BP Sys/Olguin Pulse Ox Last 24 Hr 97.3 F-98.8 F 70-82 18-20 86-107/47-57 96-96 GENERAL: The patient is awake, alert, and fully oriented, in no acute distress. HEAD: Normal with no signs of trauma. EYES:PERRLA, EOMI, sclera anicteric, conjunctiva clear. ENT: Ears normal, nares patent, oropharynx clear without exudates, moist mucous membranes. NECK:Soft, supple, trachea midline. LUNGS: Decreased breath sounds bilateral bases. HEART: Regular rate and rhythm, S1, S2 without murmur, rub or gallop. ABDOMEN: Soft, +RLQ tenderness, mildly distended, normoactive bowel sounds. EXTREMITIES: 2+ pulses, warm, well-perfused, +1 bilateral pitting edema NEUROLOGICAL: Cranial nerves II through XII grossly intact. Normal speech, gait not observed. PSYCH: Normal mood, normal affect. SKIN: Warm, dry, normal turgor, no rashes or lesions noted Laboratory Results - last 24 hr 08/15/18 08/16/18 08/16/18 05:30 06:55 06:55 WBC 5.7 RBC 2.85 L Hgb 9.1 L Hct 27.6 L MCV 97.1 H MCH 32.1 MCHC 33.1 RDW 13.9 Plt Count 114 L MPV 8.3 Absolute Neuts (auto) 5.2 Neutrophils % 90.9 H Lymphocytes % 7.9 L Monocytes % 1.2 L Eosinophils % 0.0 Basophils % 0.0 Nucleated RBC % 0 Sodium 138 Potassium 2.8 L* Chloride 99 Carbon Dioxide 32 Anion Gap 7 L BUN 15 Creatinine 0.6 Creat Clearance w eGFR > 60 Random Glucose 76 Calcium 6.6 L* Phosphorus 2.4 L Magnesium 1.7 L Iron 14 L TIBC 97 L Iron Saturation 14 L Total Bilirubin 0.8 AST 25 ALT 25 Alkaline Phosphatase 70 Total Protein 4.3 L Albumin 1.6 L Active Medications Generic Name Dose Route Start Last Admin Trade Name Freq PRN Reason Stop Dose Admin Acetaminophen 650 mg 08/14/18 00:31 08/15/18 13:01 Tylenol - PO 650 mg Q4H PRN Administration PAIN LEVEL 6-10 Aspirin 81 mg 08/14/18 10:00 08/16/18 10:21 Asa - PO 81 mg DAILY AVERY Administration Enoxaparin Sodium 40 mg 08/14/18 10:00 08/16/18 10:22 Lovenox - SQ 40 mg DAILY AVERY Administration Ferrous Sulfate 325 mg 08/14/18 08:00 08/16/18 10:22 Feosol - PO 325 mg DAILY@0800 AVERY Administration Furosemide 20 mg 08/16/18 11:45 08/16/18 13:24 Lasix - PO 20 mg DAILY AVERY Administration Potassium Chloride 20 meq 08/14/18 10:30 08/16/18 10:22 K-Dur - PO 20 meq BID AVERY Administration Ranitidine HCl 150 mg 08/15/18 11:15 08/16/18 10:22 Zantac - PO 150 mg BID AVREY Administration Tamsulosin HCl 0.4 mg 08/14/18 08:30 08/16/18 10:21 Flomax - PO 0.4 mg DAILY@0830 AVERY Administration ASSESSMENT/PLAN: Patient is an 88 year old male with past medical history of aortic aneurysm s/ p repair (03/2018), BPH, diastolic CHF, colon CA s/p resection, frequent falls, presented with difficulty ambulating and shortness of breath. #SOB, Anasarca likely 2/2 acute on chronic diastolic CHF vs Liver disease -CXR: mild CHF -Echo: LV size and function normal. EF 65-70%. RV systolic function normal. LA and RA size normal. Mild mitral valve thickening. Moderate MR. Mitral regurgitant jet is eccentric. Moderate to severe TR. Pulmonary artery systolic pressure is at least 45mmHg assuming RA presure of 3mmHg. Mild . Mild AR. No pericardial effusion. Large pleural effusion is present. -BNP 2161 (baseline 1976) -Abdominal and pelvic ultrasound: Small liver with increased echotexture. Rule out liver cirrhosis. Normal size spleen. At least a small amount of ascites in the right and left upper quadrant. Bilateral pleural effusion. Adequately distended gallbladder without gross intraluminal stones. However, there is suggestion of mild irregular thickening of its wall. Dilated common bile duct measuring 1.2 cm in AP dimension for which further evaluation is needed. Adequately distended urinary bladder without gross wall thickening. 88cc of postvoid urine residue is present. Bilateral ureteral jets were not visualized. Prostate gland was not visualized/evaluated. -Cardiology (Dr. Cabrera) consulted. Recommendations appreciated. -Switch IV Lasix to PO 20mg daily. -Monitor K -- continue K-dur 20mg BID, may add PRN -Will need repeat echo once patient is well diuresed, to reassess severity of valve regurgitation, as well as mechanism/valve morphology--to guide further treatment (not a candidate for open heart surgery, could consider clip if indicated) #Frequent falls -Head CT, C-spine CT, T-spine CT, chest CT, pelvic CT: no evidence of fractures -Fall precautions -Physical therapy evaluation #Scrotal swelling -Scrotal US: no signs of acute traumatic injury. 1.6 cm simple appearing cyst in the right testicle. Trace right and small to moderate left hydrocele. Right varicocele. -Scrotal sling/support -Follow-up as outpatient #Anemia -H/H 9.1/27.6 -likely multifactorial -Continue home Feosol 325mg daily -Vit B12 and folate levels, retic count, iron studies #BPH -Continue home Tamsulosin 0.4mg daily #Hypoglycemia -Glu was 48 at the ED, patient was given D50 -Will continue to monitor #FEN -Not on any standing fluids -Hypokalemia, on K-Dur 20 mg BID -Routine bmp monitoring -Sodium controlled diet #Prophylaxis -Lovenox 40mg sq daily #Disposition -Daughter is HCP. According to her, patient is DNR/DNI. -Will have both patient and daughter sign papers once patient is more awake and alert. -Daughter requesting patient be discharged to SNF (preferrably near [place], where she lives). [facility] in the case. Visit type - Emergency Visit Emergency Visit: Yes ED Registration Date: 08/13/18 Care time: The patient presented to the Emergency Department on the above date and was hospitalized for further evaluation of their emergent condition. - New Patient This patient is new to me today: No - Critical Care Critical Care patient: No
--- NOTE | 2018-08-16 18:47 | PN ---
Teaching Attending Note Name of Resident: Kathryn Deluna ATTENDING PHYSICIAN STATEMENT I saw and evaluated the patient. I reviewed the resident's note and discussed the case with the resident. I agree with the resident's findings and plan as documented. SUBJECTIVE: no SOB , no CP. no fever or chills OBJECTIVE: NAD. CV: RRR Lungs: decreased breath sounds at bases otherwise clear Ext : 2+ edema o n upper arms. trace on hands. trace on legs . R heel with an open cut with no drainage , big toe with red thick skin with no discharge or increased warmth ASSESSMENT AND PLAN: 88 y/o man with h/o chronic diastolic heart failure, AAA s/p repair , BPH , colon cancer , falls who presented with SOB. 1- Acute diastolic heart failure. improved. BP on lower dside but no sx. echo reviewed Mod Mr, severe TR - appreciate cardiac Recs - cont with po lasix - replete K and repeat level 2- Mod MR, severe TR. on echo 08/14/18. need repeat echo 3- Scrotal swelling form heart failure . US reviweed. 4- h/o AAA , s/p repeair. onCT AAA 5.1 cm. stent visualized partially. f/u as out pt 5- s/p fall : CT scans with no acute fracture DVT PX Dispo : need rehab. medically ready for Am
[2018-08-17] MEDS ORDERED: POTASSIUM CHLORIDE TABS 20 MEQ TABLET.ER (FP) PO ONE (05:27)
[2018-08-17] MEDS ORDERED: KCL 10 MEQ IVPB 10 MEQ/100 ML INFUS.BAG IVPB SCH (05:30)
[2018-08-17 06:49] VITALS: TEMP 97.7
[2018-08-17 07:45] LABS: HEMATOCRIT 29.1 % (35.4-49); HEMOGLOBIN 9.5 GM/dL (11.7-16.9); LYMPH % 8.6 % (8-40); MCHC 32.8 g/dl (32.0-35.9); MEAN CELL VOLUME 97.4 fl (80-96); MEAN PLT VOLUME 8.6 fl (7.5-11.1); MONO % 1.1 % (3.8-10.2); NEUT % 90.3 % (42.8-82.8); PLATELET COUNT 112 K/MM3 (134-434); RBC 2.98 M/mm3 (4.00-5.60); RDW 13.9 % (11.9-15.9); WHITE BLOOD COUNT 9.8 K/mm3 (4.0-10.0)
[2018-08-17 07:57] LABS: ANION GAP 4 MMOL/L (8-16); BLOOD UREA NITROGEN 18 mg/dL (7-18); CHLORIDE 99 mmol/L (98-107); CO2 32 mmol/L (21-32); CREATININE 0.5 mg/dL (0.55-1.3); GLUCOSE,RANDOM 88 mg/dL (74-106); MAGNESIUM 1.8 mg/dL (1.8-2.4); PHOSPHOROUS 1.8 mg/dL (2.5-4.9); POTASSIUM 3.5 mmol/L (3.5-5.1); SODIUM 135 mmol/L (136-145)
[2018-08-17] MEDS ORDERED: NAPH,MB-DB/K PH,MBDB POWDER PACKET PO ONE (08:49)
[2018-08-17] MEDS: FERROUS SO4 325 MG TABLET (FP) PO SCH (08:58)
[2018-08-17] MEDS: TAMSULOSIN HCL 0.4 MG CAP PO SCH (08:58)
[2018-08-17 09:12] LABS: CALCIUM 6.9 mg/dL (8.5-10.1)
[2018-08-17] MEDS: POTASSIUM CHLORIDE TABS 20 MEQ TABLET.ER (FP) PO SCH (09:58)
[2018-08-17] MEDS: RANITIDINE HCL 150 MG TABLET (FP) PO SCH (09:58)
[2018-08-17] MEDS: FUROSEMIDE 20 MG TABLET (FP) PO SCH (09:58)
[2018-08-17] MEDS: ASPIRIN 81 MG CHEWABLE TABLETS PO SCH (09:58)
[2018-08-17] MEDS: ENOXAPARIN NA (PORCINE) 40 MG/0.4 ML DISP.SYRIN SQ SCH (09:59)
--- NOTE | 2018-08-17 11:29 | PN ---
Progress Note (short form) - Note Progress Note: Chief Complaint: s/p fall, pain History of Present Illness: no sob cp palps dizzy Current Medications Generic Name Dose Route Start Last Admin Trade Name Amrit PRN Reason Stop Dose Admin Acetaminophen 650 mg 08/14/18 00:31 08/15/18 13:01 Tylenol - PO 650 mg Q4H PRN Administration PAIN LEVEL 6-10 Aspirin 81 mg 08/14/18 10:00 08/17/18 09:58 Asa - PO 81 mg DAILY [facility] Administration Enoxaparin Sodium 40 mg 08/14/18 10:00 08/17/18 09:59 Lovenox - SQ 40 mg DAILY [facility]ERY Administration Ferrous Sulfate 325 mg 08/14/18 08:00 08/17/18 08:58 Feosol - PO 325 mg DAILY@0800 AVERY Administration Furosemide 20 mg 08/16/18 11:45 08/17/18 09:58 Lasix - PO 20 mg DAILY [facility] Administration Potassium Chloride 20 meq 08/14/18 10:30 08/17/18 09:58 K-Dur - PO 20 meq BID [facility]ERY Administration Ranitidine HCl 150 mg 08/15/18 11:15 08/17/18 09:58 Zantac - PO 150 mg BID AVERY Administration Tamsulosin HCl 0.4 mg 08/14/18 08:30 08/17/18 08:58 Flomax - PO 0.4 mg DAILY@0830 [facility]ERY Administration Vital Signs: Vital Signs Period Temp Pulse Resp BP Sys/Olguin Pulse Ox Last 24 Hr 97.3 F-98.8 F 79-87 18-20 88-107/49-59 95 Constitutional: Yes: Well Nourished, No Distress Eyes: No: Sclera Icterus Respiratory: Yes: cta bl nl eff No: Accessory Muscle Use, Wheezes Gastrointestinal: Yes: Normal Bowel Sounds. No: Distention, Hepatomegaly, Palpable Mass, Tenderness Cardiovascular: Yes: Regular Rate and Rhythm JVD: no Heart Sounds: Yes: S1, S2. No: Gallop Murmur: No: Systolic Murmur, Diastolic Murmur Extremities: No: Cool, Cyanosis Edema: no Peripheral Pulses: 2+ Left Carotid, 2+ Right Carotid, 2+ Left Doralis Pedis, 2+ Right Dorsalis Pedis Integumentary: No: Jaundice Neurological: Yes: Alert. No: Seizure Psychiatric: No: Agitated CBC, BMP 08/17/18 06:22 08/17/18 06:22 Assessment/Plan Echo 06/25 ([facility]): nl LVEF. nl RV. severe MR (posterior jet). severe TR. RVSP 40- 50. echo 08/2018 LV nl size/function, RV nl, mod MR with eecentric jet, mod to severe TR, PASP at least 45 mmHg, mild AR, lg pleural effusion present CT chest: mod-large pleural effusions, no infiltrate. small peric effusion. ascites upper abdomen. partially imaged AAA endograft. 3.7 cm thoracic aorta. tele: sinus, PVCs anasarca, acute on chronic HFpEF, severe MR/TR: -bilat pleural effusions, leg/scrotal swelling -BNP 5K (from 1900 in 06/25) -albumin low (1.9)--? 3rd spacing component -echo 06/25 (here with cellulitis then, no cardio consult in hospital) showed normal biventricular function with reportedly severe MR and TR. - 08/14 on lasix 40 mg IV BID - 08/15 weight up 106->111 lbs, d/w nurse yesterday's weight may be erronenous. sob/edema improving, Cr stable - will continue lasix 40 mg IV BID today -monitor K, replete as needed - 08/16 lasix decreased to 20 mg IV BID by primary team for low BPs, weight down, Cr stable - weight at home 106 lbs, this morning 107. edema and sob improved. dc iv lasix, start lasix 20 mg po daily -08/17: cont po lasix -will need repeat echo as outpt once he is well diuresed, to reassess severity of valve regurgitation, as well as mechanism/valve morphology--to guide further treatment decisions (not a candidate for open heart surgery, could consider clip if indicated) - echo 08/14 shows mod MR with eccentric jet. CAD, subclinical: -cor calcifications on CT chest -warrants outpt f/u for discussion of sec prevention meds e.g. statin -cont aspirin from home regimen h/o AAA: -s/p repair 2018 ([facility]), stable in f/u there with vascular s/p fall, pain: -reportedly CT scans with no fractures -per hospitalist cardiac andujar stable
[2018-08-17 16:54] VITALS: BP 100/52; PULSE 88
--- NOTE | 2018-08-17 18:46 | DS ---
Physical Exam: SUBJECTIVE: Patient seen and examined at bedside this morning. No acute events overnight. Patient is sitting comfortably in bed and has no complaints. He agrees going to SNF once medically stable. OBJECTIVE: Vital Signs Period Temp Pulse Resp BP Sys/Olguin Pulse Ox Last 24 Hr 97.3 F-98.8 F 80-88 18-20 100-105/52-59 95-95 PHYSICAL EXAM GENERAL: The patient is awake, alert, and fully oriented, in no acute distress. HEAD: Normal with no signs of trauma. EYES:PERRLA, EOMI, sclera anicteric, conjunctiva clear. ENT: Ears normal, nares patent, oropharynx clear without exudates, moist mucous membranes. NECK:Soft, supple, trachea midline. LUNGS: Decreased breath sounds bilateral bases. HEART: Regular rate and rhythm, S1, S2 without murmur, rub or gallop. ABDOMEN: Soft, +RLQ tenderness, mildly distended, normoactive bowel sounds. EXTREMITIES: 2+ pulses, warm, well-perfused, +1 bilateral pitting edema NEUROLOGICAL: Cranial nerves II through XII grossly intact. Normal speech, gait not observed. PSYCH: Normal mood, normal affect. SKIN: Warm, dry, normal turgor, no rashes or lesions noted LABS Laboratory Results - last 24 hr 08/17/18 08/17/18 06:22 06:22 WBC 9.8 RBC 2.98 L Hgb 9.5 L Hct 29.1 L MCV 97.4 H MCH 32.0 MCHC 32.8 RDW 13.9 Plt Count 112 L MPV 8.6 Absolute Neuts (auto) 8.8 H Neutrophils % 90.3 H Lymphocytes % 8.6 Monocytes % 1.1 L Eosinophils % 0.0 Basophils % 0.0 Nucleated RBC % 0 Sodium 135 L Potassium 3.5 Chloride 99 Carbon Dioxide 32 Anion Gap 4 L BUN 18 Creatinine 0.5 L Creat Clearance w eGFR > 60 Random Glucose 88 Calcium 6.9 L* Phosphorus 1.8 L Magnesium 1.8 -Echo: LV size and function normal. EF 65-70%. RV systolic function normal. LA and RA size normal. Mild mitral valve thickening. Moderate MR. Mitral regurgitant jet is eccentric. Moderate to severe TR. Pulmonary artery systolic pressure is at least 45mmHg assuming RA presure of 3mmHg. Mild . Mild AR. No pericardial effusion. Large pleural effusion is present. -CXR: mild CHF -Abdominal and pelvic ultrasound: Small liver with increased echotexture. Rule out liver cirrhosis. Normal size spleen. At least a small amount of ascites in the right and left upper quadrant. Bilateral pleural effusion. Adequately distended gallbladder without gross intraluminal stones. However, there is suggestion of mild irregular thickening of its wall. Dilated common bile duct measuring 1.2 cm in AP dimension for which further evaluation is needed. Adequately distended urinary bladder without gross wall thickening. 88cc of postvoid urine residue is present. Bilateral ureteral jets were not visualized. Prostate gland was not visualized/evaluated. -Scrotal US: no signs of acute traumatic injury. 1.6 cm simple appearing cyst in the right testicle. Trace right and small to moderate left hydrocele. Right varicocele. HOSPITAL COURSE: Date of Admission:08/13/18 Date of Discharge: 08/17/18 Patient is an 88 year old male with past medical history of aortic aneurysm s/ p repair (03/2018), BPH, diastolic CHF, colon CA s/p resection, frequent falls, presented with difficulty ambulating and shortness of breath. Because of history of falls, head CT, C-spine CT, T-spine CT, chest CT, pelvic CT were done which revealed no evidence of fractures. For the SOB and anasarca, patient was treated for CHF exacerbation. He was started on IV Lasix and Echo was done. Cardiology consulted. Patient continued to improve throughout his hospital stay. He was discharged to SNF, as per request by patient and daughter, with instructions to follow-up with cardiology and PCP. Minutes to complete discharge: 35 Discharge Summary Reason For Visit: ACUTE CONGESTIVE HEART FAILURE Condition: Improved - Instructions Diet, Activity, Other Instructions: Your visit You were admitted to the hospital because you had shortness of breath and leg swelling. You were noted to have fluid overload because your heart was not pumping enough blood into your circulation. You were given water pills that would help you excrete the fluid through the urine. Medications Please note the following changes: -Take lasix (water pill) 20mg once a day -Potassium 10mEq (1 pill) one pill a day You may continue your other home medications. Care Restrict your fluid intake to 1.5L per day. Also, check your weight daily. notify your doctor if you gain > 3lbs in 2 days or have any new concerns. It is important to also eat a low salt diet. Follow-up -Please follow-up with your catering barista in 1 week . You will need a repeat ECHO in 2 weeks. -Follow-up with your primary care doctor (Dr. Kevin) within 1 week. you need a repeat BMP in 1 week Additional info Call 911 or go to the ED if with any worsening shortness of breath, fevers, chills, nausea, vomiting, headache, dizziness, chest pain, palpitations, bloody stools or any new concerns noted. Referrals: Vince Kevin MD [Primary Care Provider] - 1 Week Kwesi Gregorio MD [Staff Physician] - 1 Week Disposition: [facility] - Home Medications Comprehensive Discharge Medication List: Ambulatory Orders Aspirin [ASA -] 81 mg PO DAILY 06/27/18 Tamsulosin HCl 0.4 mg PO DAILY 06/27/18 Ferrous Sulfate [Feosol] 325 mg PO DAILY@0800 ud 08/17/18 Furosemide [Lasix -] 20 mg PO DAILY tablet 08/17/18 Potassium Chloride 10 meq PO DAILY #30 capsule.er 08/17/18 Ranitidine [Zantac -] 150 mg PO BID tablet 08/17/18 This patient is new to me today: No Emergency Visit: Yes ED Registration Date: 08/13/18 Care time: The patient presented to the Emergency Department on the above date and was hospitalized for further evaluation of their emergent condition. Critical Care patient: No - Discharge Referral Referred to [facility] Yes Physician Referral: Neno Lucas MD ([facility])
--- NOTE | 2018-08-17 18:51 | PN ---
Teaching Attending Note Name of Resident: Crystal Blair ATTENDING PHYSICIAN STATEMENT I saw and evaluated the patient. I reviewed the resident's note and discussed the case with the resident. I agree with the resident's findings and plan as documented. SUBJECTIVE: no SOB , scrotal swelling is better OBJECTIVE: NAD. CV: RRR Lungs: decreased breath sounds at bases L > R otherwise clear Ext : 2+ edema o n upper arms. trace on hands. trace on legs . R heel with an open cut with no drainage , big toe with red thick skin with no discharge or increased warmth scrotum with no edema or erythema. ASSESSMENT AND PLAN: 88 y/o man with h/o chronic diastolic heart failure, AAA s/p repair , BPH , colon cancer , falls who presented with SOB. 1- Acute diastolic heart failure. improved. - cont with po lasix 2- Mod MR, severe TR. on echo 08/14/18. need repeat echo as out pt 3- Scrotal swelling form heart failure .resolved 4- h/o AAA , s/p repair. on CT AAA 5.1 cm. stent visualized partially. f/u as out pt 5- s/p fall : CT scans with no acute fracture dc to rehab
== END 2018-08-17 17:58 | DRG 292 ==
LOC: JER 14:31 → JERBED 22:07 → J4W 08-14 17:52
PROVIDERS: ADMIT Internal Medicine; ATTEND Internal Medicine
DX: I11.0 Hypertensive heart disease with heart failure (principal); J98.11 Atelectasis; R18.8 Other ascites; R64 Cachexia; E46 Unspecified protein-calorie malnutrition; I50.33 Acute on chronic diastolic (congestive) heart failure; E16.2 Hypoglycemia, unspecified; I25.10 Atherosclerotic heart disease of native coronary artery without angina pectoris; N50.89 Other specified disorders of the male genital organs; I34.0 Nonrheumatic mitral (valve) insufficiency; I07.1 Rheumatic tricuspid insufficiency; N40.0 Benign prostatic hyperplasia without lower urinary tract symptoms; E88.09 Other disorders of plasma-protein metabolism, not elsewhere classified; D64.9 Anemia, unspecified; Z68.20 Body mass index [BMI] 20.0-20.9, adult; E87.6 Hypokalemia
CPT/HCPCS: 36415; 70450-TC; 70486-TC; 71045-TC-FY; 71250-TC; 72125-TC; 72128-TC; 72131-TC; 72192-TC; 76700-TC; 76856-TC; 76870-TC; 80048; 80053; 81003; 81015; 82550; 82553; 82607; 82746; 82962; 83540; 83550; 83735; 83880; 84100; 84443; 84484; 85025; 85044; 87086; 93005; 93010; 93306-TC; 97116-GP; 97162-GP; 99284-25